=== PATIENT | male | born 1945 | race Caucasian/White ===

== ENCOUNTER → 2016-05-23 | Outpatient (CLI) | payer MEDICARE ==
[2016-05-23 07:42] LABS: Basophils # (A) 0.2 k/uL (0-0.2); Basophils % (A) 2 %; CHCM 33.6; Eosinophils # (A) 0.3 k/uL (0-0.7); Eosinophils % (A) 3 %; HCT 49.1 % (39.0-53.0); HDW 2.88; Luc % (Auto) 1; Lymphocytes # (A) 0.7 k/uL (1.0-4.8); Lymphocytes % (A) 8 %; MCH 30.3 pg (25.0-35.0); MCHC 32.7 g/dL (31.0-37.0); MCV 92.7 fL (80.0-100.0); Mean Platelet Volume 8.3; Monocytes # (A) 0.4 k/uL (0-1.0); Monocytes % (A) 5 %; Neutrophils # (A) 6.5 k/uL (1.3-7.7); Neutrophils % (A) 80 %; RDW 14.6 % (11.5-15.5); WBC 8.1 k/uL (3.8-10.6); WBC (Perox) 7.97
[2016-05-23 07:46] LABS: Appearance,Urine Clear (Clear); Bilirubin,Urine Negative (Negative); Glucose,Urine (UA) Negative (Negative); Ketones,Urine Negative (Negative); Leukocyte Esterase,Urine Moderate (Negative); Nitrite,Urine Negative (Negative); Particle Count 712; Protein,Urine Negative (Negative); Specific Gravity,Urine 1.008 (1.001-1.035); Squamous Epithelial Cell,Urine <1 /hpf (0-4); UA Billing (MACRO vs. MICRO) MICRO; Urobilinogen,Urine <2.0 mg/dL (<2.0); WBC,Urine 38 /hpf (0-5)
[2016-05-23 10:38] LABS: Calcium 8.9 mg/dL (8.4-10.2); Magnesium 2.3 mg/dL (1.6-2.3); Phosphorous 3.5 mg/dL (2.5-4.5); Potassium 3.5 mmol/L (3.5-5.1)
[2016-05-23 10:48] LABS: % Iron Saturation 20.2 % (20-50)
== END | disposition home or self-care (01) ==
LOC: LABWHC1 06:33
PROVIDERS: ATTEND Internal Medicine Nephrology
DX: N18.3 Chronic kidney disease, stage 3 (moderate) (principal); N25.81 Secondary hyperparathyroidism of renal origin; D64.9 Anemia, unspecified; E21.3 Hyperparathyroidism, unspecified; E55.9 Vitamin D deficiency, unspecified; M10.9 Gout, unspecified; R80.9 Proteinuria, unspecified
CPT/HCPCS: 36415; 80048; 81001; 82040; 82306; 82728; 83540; 83550; 83735; 83970; 84100; 84550; 85025

== ENCOUNTER → 2016-07-11 | Outpatient (CLI) | payer MEDICARE ==
[2016-07-11 08:20] LABS: Calcium 8.7 mg/dL (8.4-10.2); Potassium 4.3 mmol/L (3.5-5.1)
== END | disposition home or self-care (01) ==
LOC: LABWHC1 06:33
PROVIDERS: ATTEND Internal Medicine
DX: N18.4 Chronic kidney disease, stage 4 (severe) (principal)
CPT/HCPCS: 36415; 80048; 83735

== ENCOUNTER → 2016-09-05 | Outpatient (CLI) | payer MEDICARE ==
[2016-09-05 07:30] LABS: CH 29.8; CHCM 31.8; HCT 43.4 % (39.0-53.0); HDW 2.87; Hypochromasia Slight; MCH 30.2 pg (25.0-35.0); MCHC 32.1 g/dL (31.0-37.0); Mean Platelet Volume 7.2; RBC 4.62 m/uL (4.30-5.90); RDW 14.8 % (11.5-15.5); WBC 7.4 k/uL (3.8-10.6)
[2016-09-05 07:40] LABS: Appearance,Urine Clear (Clear); Bilirubin,Urine Negative (Negative); Glucose,Urine (UA) Negative (Negative); Ketones,Urine Negative (Negative); Leukocyte Esterase,Urine Large (Negative); Mucus,Urine Rare /hpf; Nitrite,Urine Negative (Negative); PH, Urine 6.5 (5.0-8.0); Particle Count 698; Protein,Urine Trace (Negative); RBC,Urine 1 /hpf (0-5); Specific Gravity,Urine 1.012 (1.001-1.035); UA Billing (MACRO vs. MICRO) MICRO; Urobilinogen,Urine <2.0 mg/dL (<2.0); WBC,Urine 107 /hpf (0-5)
[2016-09-05 10:22] LABS: Phosphorous 3.5 mg/dL (2.5-4.5); Potassium 4.5 mmol/L (3.5-5.1); Uric Acid 5.5 mg/dL (3.5-8.5)
[2016-09-05 10:28] LABS: Creatinine,Urine Random 101.1 mg/dL
[2016-09-05 10:31] LABS: % Iron Saturation 16.5 % (20-50)
[2016-09-06 11:29] LABS: Free Kappa Lt Chain Qnt, Serum 3.73 mg/dL (0.33 - 1.94); Kappa/Lambda Light Chain Ratio 1.73 (0.26 - 1.65)
== END | disposition home or self-care (01) ==
LOC: LABWHC1 06:32
PROVIDERS: ATTEND Internal Medicine
DX: N18.4 Chronic kidney disease, stage 4 (severe) (principal); D64.9 Anemia, unspecified; R80.9 Proteinuria, unspecified; E55.9 Vitamin D deficiency, unspecified; M10.9 Gout, unspecified
CPT/HCPCS: 36415; 80048; 81001; 82043; 82306; 82570; 82728; 83540; 83550; 83883; 83970; 84100; 84156; 84550; 85027; 86334

== ENCOUNTER → 2016-12-07 | Outpatient (CLI) | payer MEDICARE ==
[2016-12-07 10:42] LABS: Urine Creatinine 38.7 mg/dL
[2016-12-07 13:47] LABS: Potassium 4.6 mmol/L (3.5-5.1); Total Protein 6.3 g/dL (6.3-8.2)
== END | disposition home or self-care (01) ==
LOC: LABWHC1 06:35
PROVIDERS: ATTEND Internal Medicine Endocrinology, Diabetes & Metabolism
DX: E11.65 Type 2 diabetes mellitus with hyperglycemia (principal)
CPT/HCPCS: 36415; 80053; 80061; 82043; 82570; 82607; 84443

== ENCOUNTER → 2017-01-17 | Outpatient (CLI) | payer MEDICARE ==
[2017-01-17 07:53] LABS: Calcium 8.9 mg/dL (8.4-10.2); Potassium 4.5 mmol/L (3.5-5.1)
== END | disposition home or self-care (01) ==
LOC: LABWHC1 06:34
PROVIDERS: ATTEND Internal Medicine
DX: N18.3 Chronic kidney disease, stage 3 (moderate) (principal)
CPT/HCPCS: 36415; 80048; 84550

== ENCOUNTER → 2017-07-03 | Outpatient (CLI) | payer MEDICARE ==
[2017-07-03 07:37] LABS: Albumin 3.3 g/dL (3.5-5.0); Calcium 8.9 mg/dL (8.4-10.2); Potassium 4.4 mmol/L (3.5-5.1); Total Protein 5.8 g/dL (6.3-8.2)
[2017-07-03 13:59] LABS: Hemoglobin A1C 6.6 % (4.0-6.0)
== END | disposition home or self-care (01) ==
LOC: LABWHC1 06:38
PROVIDERS: ATTEND Internal Medicine Endocrinology, Diabetes & Metabolism
DX: E11.65 Type 2 diabetes mellitus with hyperglycemia (principal)
CPT/HCPCS: 36415; 80053; 80061; 82043; 82570; 83036

== ENCOUNTER → 2017-08-14 | Outpatient (CLI) | payer MEDICARE ==
[2017-08-14 07:20] LABS: Calcium 8.4 mg/dL (8.4-10.2); Phosphorus 3.6 mg/dL (2.5-4.5); Potassium 4.8 mmol/L (3.5-5.1); Total Bilirubin 0.8 mg/dL (0.2-1.3); Total Protein 5.5 g/dL (6.3-8.2)
== END | disposition home or self-care (01) ==
LOC: LABWHC1 06:40
PROVIDERS: ATTEND Internal Medicine
DX: N18.4 Chronic kidney disease, stage 4 (severe) (principal)
CPT/HCPCS: 36415; 80053; 84100

== ENCOUNTER → 2017-12-18 | Outpatient (CLI) | payer MEDICARE ==
[2017-12-18 07:24] LABS: HCT 47.1 % (39.0-53.0); HGB 14.9 gm/dL (13.0-17.5); MCH 29.5 pg (25.0-35.0); MCHC 31.7 g/dL (31.0-37.0); MCV 93.1 fL (80.0-100.0); Mean Platelet Volume 7.9; Platelet Count 160 k/uL (150-450); RBC 5.06 m/uL (4.30-5.90); RDW 13.7 % (11.5-15.5); WBC 8.6 k/uL (3.8-10.6)
[2017-12-18 07:59] LABS: Albumin 3.6 g/dL (3.5-5.0); Calcium 8.8 mg/dL (8.4-10.2); Potassium 4.7 mmol/L (3.5-5.1); Total Bilirubin 0.7 mg/dL (0.2-1.3); Total Protein 6.1 g/dL (6.3-8.2); Uric Acid 7.4 mg/dL (3.5-8.5)
[2017-12-18 08:51] LABS: Appearance,Urine Clear (Clear); Bilirubin,Urine Negative (Negative); Blood,Urine Negative (Negative); Color,Urine Light Yellow; Glucose,Urine (UA) Negative (Negative); Ketones,Urine Negative (Negative); Leukocyte Esterase,Urine Negative (Negative); Nitrite,Urine Negative (Negative); Protein,Urine Negative (Negative); Specific Gravity,Urine 1.009 (1.001-1.035); Urobilinogen,Urine <2.0 mg/dL (<2.0)
[2017-12-18 09:10] LABS: Creatinine,Urine Random 52.6 mg/dL
[2017-12-18 16:46] LABS: Iron Saturation 23.6 (15.00-50.00)
== END | disposition home or self-care (01) ==
LOC: LABWHC1 06:38
PROVIDERS: ATTEND Internal Medicine
DX: N18.3 Chronic kidney disease, stage 3 (moderate) (principal); D63.1 Anemia in chronic kidney disease; E83.39 Other disorders of phosphorus metabolism
CPT/HCPCS: 36415; 80053; 81003; 82570; 82728; 83540; 83550; 84156; 84550; 85027

== ENCOUNTER → 2018-01-29 | Outpatient (CLI) | payer MEDICARE ==
[2018-01-29 08:07] LABS: Albumin 3.5 g/dL (3.5-5.0); Calcium 8.5 mg/dL (8.4-10.2); Potassium 4.7 mmol/L (3.5-5.1); Total Bilirubin 0.7 mg/dL (0.2-1.3); Total Protein 6.2 g/dL (6.3-8.2)
[2018-01-29 12:45] LABS: Hemoglobin A1C 6.8 % (4.0-6.0)
== END | disposition home or self-care (01) ==
LOC: LABWHC1 06:37
PROVIDERS: ATTEND Internal Medicine Endocrinology, Diabetes & Metabolism
DX: E11.65 Type 2 diabetes mellitus with hyperglycemia (principal)
CPT/HCPCS: 36415; 80053; 80061; 82043; 82570; 83036

== ENCOUNTER → 2018-03-12 | Outpatient (CLI) | payer MEDICARE ==
[2018-03-12 11:25] LABS: Anion Gap 6.7 mmol/L (4.00-12.00); Calcium 8.8 mg/dL (8.7-10.3); Carbon Dioxide 32.3 mmol/L (21.6-31.8); Potassium 4.1 mmol/L (3.5-5.5)
== END | disposition home or self-care (01) ==
LOC: LABWHC1 06:34
PROVIDERS: ATTEND Internal Medicine
DX: N18.3 Chronic kidney disease, stage 3 (moderate) (principal)
CPT/HCPCS: 36415; 80048

== ENCOUNTER → 2018-06-11 | Outpatient (CLI) | payer MEDICARE ==
[2018-06-11 07:27] LABS: Appearance,Urine Clear (Clear); Bilirubin,Urine Negative (Negative); Blood,Urine Negative (Negative); Color,Urine Yellow; Glucose,Urine (UA) Negative (Negative); Ketones,Urine Negative (Negative); Leukocyte Esterase,Urine Negative (Negative); Nitrite,Urine Negative (Negative); PH, Urine 6.5 (5.0-8.0); Protein,Urine Trace (Negative); Specific Gravity,Urine 1.012 (1.001-1.035); Urobilinogen,Urine <2.0 mg/dL (<2.0)
[2018-06-11 11:33] LABS: Anion Gap 8.8 mmol/L (4.00-12.00); Calcium 8.9 mg/dL (8.7-10.3); Carbon Dioxide 30.2 mmol/L (21.6-31.8); Phosphorus 3.6 mg/dL (2.4-5.1); Potassium 4.4 mmol/L (3.5-5.5); Uric Acid 6.2 mg/dL (3.7-8.7)
[2018-06-11 11:36] LABS: Vitamin D 25 Hydroxy 31.6 ng/mL (30.0-100.0)
[2018-06-11 12:08] LABS: Parathyroid Hormone Intact 112.3 pg/mL (14.0-72.0)
[2018-06-11 14:52] LABS: Creatinine,Urine Random 93.3 mg/dL
[2018-06-11 15:20] LABS: Total Protein,Urine Random 28.2 mg/dL (0.0-13.5)
== END | disposition home or self-care (01) ==
LOC: LABWHC1 06:36
PROVIDERS: ATTEND Internal Medicine
DX: E55.9 Vitamin D deficiency, unspecified (principal); M10.9 Gout, unspecified; N18.3 Chronic kidney disease, stage 3 (moderate); D63.1 Anemia in chronic kidney disease
CPT/HCPCS: 36415; 80048; 81003; 82306; 82570; 83970; 84100; 84156; 84550

== ENCOUNTER → 2018-07-10 | Outpatient (CLI) | payer MEDICARE ==
[2018-07-10 07:40] LABS: ALT 30 U/L (21-72); AST 22 U/L (17-59); Albumin 3.6 g/dL (3.5-5.0); Albumin/Globulin Ratio 1.3; Alkaline Phosphatase 125 U/L (38-126); Anion Gap 8 mmol/L; Blood Urea Nitrogen 41 mg/dL (9-20); Carbon Dioxide 35 mmol/L (22-30); Chloride 98 mmol/L (98-107); Globulin 2.8 g/dL; Glucose 183 mg/dL (74-99); Potassium 3.8 mmol/L (3.5-5.1); Sodium 141 mmol/L (137-145); Total Bilirubin 0.9 mg/dL (0.2-1.3); Total Protein 6.4 g/dL (6.3-8.2)
== END | disposition home or self-care (01) ==
LOC: LABWHC1 06:37
PROVIDERS: ATTEND Internal Medicine Nephrology
DX: N18.4 Chronic kidney disease, stage 4 (severe) (principal)
CPT/HCPCS: 36415; 80053

== ENCOUNTER → 2018-07-17 | Outpatient (CLI) | payer MEDICARE ==
[2018-07-17 12:31] LABS: Anion Gap 13.4 mmol/L (4.00-12.00); Calcium 9.1 mg/dL (8.7-10.3); Carbon Dioxide 27.6 mmol/L (21.6-31.8)
== END ==
LOC: LABWHC1 06:33
PROVIDERS: ATTEND Internal Medicine
DX: N18.4 Chronic kidney disease, stage 4 (severe) (principal)
CPT/HCPCS: 36415; 80048

== ENCOUNTER → 2018-09-17 | Outpatient (CLI) | payer MEDICARE ==
[2018-09-17 07:22] LABS: HCT 42.9 % (39.0-53.0); HGB 13.7 gm/dL (13.0-17.5); Hypochromasia Slight; MCH 30.9 pg (25.0-35.0); MCV 96.7 fL (80.0-100.0); Platelet Count 169 k/uL (150-450); RBC 4.44 m/uL (4.30-5.90); RDW 13.7 % (11.5-15.5); WBC 8.1 k/uL (3.8-10.6)
[2018-09-17 11:25] LABS: Iron Saturation 20.07 (15.00-50.00)
[2018-09-17 11:26] LABS: Albumin/Globulin Ratio 2.5 (1.60-3.17); Anion Gap 6.7 mmol/L (4.00-12.00); Calcium 8.5 mg/dL (8.7-10.3); Carbon Dioxide 32.3 mmol/L (21.6-31.8); Globulin 1.6 g/dL (1.6-3.3); Potassium 4.1 mmol/L (3.5-5.5); Total Bilirubin 0.9 mg/dL (0.2-1.2); Total Protein 5.6 g/dL (6.2-8.2)
== END ==
LOC: LABWHC1 06:34
PROVIDERS: ATTEND Internal Medicine
DX: N18.4 Chronic kidney disease, stage 4 (severe) (principal)
CPT/HCPCS: 36415; 80053; 82728; 83540; 83550; 85027

== ENCOUNTER → 2018-10-29 | Outpatient (CLI) | payer MEDICARE ==
[2018-10-29 11:25] LABS: African American GFR (CKD) 20.8 (60.0-200.0); Albumin 3.9 g/dL (3.80-4.90); Albumin/Globulin Ratio 1.86 (1.60-3.17); Anion Gap 8.3 mmol/L (4.00-12.00); BUN/Creat Ratio 27.5 Ratio (12.00-20.00); Calcium 8.7 mg/dL (8.7-10.3); Carbon Dioxide 26.7 mmol/L (21.6-31.8); Globulin 2.1 g/dL (1.6-3.3); LDL Cholesterol,Calculated 80.4 mg/dL (0.0-131.0); Potassium 5.1 mmol/L (3.5-5.5); Total Bilirubin 0.4 mg/dL (0.3-1.2); VLDL Calculation 33.6 mg/dL (5.00-40.00)
== END | disposition home or self-care (01) ==
LOC: LABWHC1 06:40
PROVIDERS: ATTEND Internal Medicine Endocrinology, Diabetes & Metabolism
DX: E11.65 Type 2 diabetes mellitus with hyperglycemia (principal)
CPT/HCPCS: 36415; 80053; 80061; 82043; 82570; 83036; 84443

== ENCOUNTER → 2018-11-20 | Outpatient (CLI) | payer MEDICARE ==
[2018-11-20 17:52] LABS: African American GFR (CKD) 24.5 (60.0-200.0); Anion Gap 11.1 mmol/L (4.00-12.00); BUN/Creat Ratio 24.64 Ratio (12.00-20.00); Calcium 8.8 mg/dL (8.7-10.3); Carbon Dioxide 25.9 mmol/L (21.6-31.8); Potassium 4.5 mmol/L (3.5-5.5)
== END | disposition home or self-care (01) ==
LOC: LABWHC1 06:33
PROVIDERS: ATTEND Internal Medicine
DX: N18.4 Chronic kidney disease, stage 4 (severe) (principal)
CPT/HCPCS: 36415; 80048

== ENCOUNTER → 2018-12-10 | Outpatient (CLI) | payer MEDICARE ==
[2018-12-10 07:36] LABS: Appearance,Urine Clear (Clear); Bilirubin,Urine Negative (Negative); Blood,Urine Negative (Negative); Color,Urine Light Yellow; Glucose,Urine (UA) Negative (Negative); Ketones,Urine Negative (Negative); Leukocyte Esterase,Urine Negative (Negative); Nitrite,Urine Negative (Negative); PH, Urine 5.5 (5.0-8.0); Protein,Urine Negative (Negative); Specific Gravity,Urine 1.012 (1.001-1.035); Urobilinogen,Urine <2.0 mg/dL (<2.0)
[2018-12-10 12:12] LABS: African American GFR (CKD) 24.5 (60.0-200.0); Anion Gap 7.9 mmol/L (4.00-12.00); BUN/Creat Ratio 22.5 Ratio (12.00-20.00); Calcium 8.9 mg/dL (8.7-10.3); Carbon Dioxide 27.1 mmol/L (21.6-31.8); Potassium 4.7 mmol/L (3.5-5.5)
== END | disposition home or self-care (01) ==
LOC: LABWHC1 06:34
PROVIDERS: ATTEND Internal Medicine
DX: N18.4 Chronic kidney disease, stage 4 (severe) (principal)
CPT/HCPCS: 36415; 80048; 81003

== ENCOUNTER → 2019-02-05 | Outpatient (CLI) | payer MEDICARE ==
[2019-02-05 06:59] LABS: Basophils # (A) 0.1 k/uL (0-0.2); Basophils % (A) 1 %; Eosinophils # (A) 0.2 k/uL (0-0.7); Eosinophils % (A) 3 %; HGB 14.4 gm/dL (13.0-17.5); Lymphocytes # (A) 1.1 k/uL (1.0-4.8); Lymphocytes % (A) 16 %; MCH 31.1 pg (25.0-35.0); MCV 97.3 fL (80.0-100.0); Mean Platelet Volume 8.1; Monocytes # (A) 0.4 k/uL (0-1.0); Monocytes % (A) 6 %; Neutrophils # (A) 5.3 k/uL (1.3-7.7); Neutrophils % (A) 73 %; Platelet Count 154 k/uL (150-450); RBC 4.63 m/uL (4.30-5.90); RDW 14.1 % (11.5-15.5); WBC 7.3 k/uL (3.8-10.6)
[2019-02-05 07:02] LABS: Appearance,Urine Clear (Clear); Bilirubin,Urine Negative (Negative); Blood,Urine Negative (Negative); Color,Urine Yellow; Glucose,Urine (UA) Negative (Negative); Ketones,Urine Negative (Negative); Leukocyte Esterase,Urine Negative (Negative); Nitrite,Urine Negative (Negative); PH, Urine 5.5 (5.0-8.0); Protein,Urine Negative (Negative); Specific Gravity,Urine 1.011 (1.001-1.035); Urobilinogen,Urine <2.0 mg/dL (<2.0)
[2019-02-05 10:58] LABS: Iron Saturation 22.66 (15.00-50.00)
[2019-02-05 11:04] LABS: Ferritin 259.7 ng/mL (22.0-322.0); Vitamin D 25 Hydroxy 28.8 ng/mL (30.0-100.0)
[2019-02-05 12:13] LABS: African American GFR (CKD) 24.5 (60.0-200.0); Albumin 3.9 g/dL (3.80-4.90); Anion Gap 10.1 mmol/L (4.00-12.00); BUN/Creat Ratio 21.79 Ratio (12.00-20.00); Calcium 8.8 mg/dL (8.7-10.3); Carbon Dioxide 25.9 mmol/L (21.6-31.8); Potassium 3.9 mmol/L (3.5-5.5); Uric Acid 11.2 mg/dL (3.7-8.7)
[2019-02-05 12:33] LABS: Creatinine,Urine Random 83.7 mg/dL; Total Protein,Urine Random 8.1 mg/dL (0.0-13.5)
== END | disposition home or self-care (01) ==
LOC: LABWHC1 06:29
PROVIDERS: ATTEND Nurse Practitioner Adult Health
DX: M10.9 Gout, unspecified (principal); N39.0 Urinary tract infection, site not specified; N25.81 Secondary hyperparathyroidism of renal origin; E55.9 Vitamin D deficiency, unspecified; D63.1 Anemia in chronic kidney disease; N18.4 Chronic kidney disease, stage 4 (severe)
CPT/HCPCS: 36415; 80048; 81003; 82040; 82306; 82570; 82728; 83540; 83550; 83735; 83970; 84100; 84156; 84550; 85025

== ENCOUNTER → 2019-04-08 | Outpatient (CLI) | payer MEDICARE ==
[2019-04-08 07:35] LABS: Basophils # (A) 0.1 k/uL (0-0.2); Basophils % (A) 1 %; Eosinophils # (A) 0.6 k/uL (0-0.7); Eosinophils % (A) 5 %; HCT 44.9 % (39.0-53.0); HGB 14.1 gm/dL (13.0-17.5); Lymphocytes # (A) 1.4 k/uL (1.0-4.8); Lymphocytes % (A) 12 %; MCH 31.3 pg (25.0-35.0); MCHC 31.4 g/dL (31.0-37.0); MCV 99.5 fL (80.0-100.0); Mean Platelet Volume 8.3; Monocytes # (A) 0.7 k/uL (0-1.0); Monocytes % (A) 6 %; Neutrophils # (A) 9.1 k/uL (1.3-7.7); Neutrophils % (A) 76 %; Platelet Count 155 k/uL (150-450); RBC 4.52 m/uL (4.30-5.90); RDW 13.6 % (11.5-15.5); WBC 11.9 k/uL (3.8-10.6)
[2019-04-08 08:06] LABS: Appearance,Urine Clear (Clear); Bilirubin,Urine Negative (Negative); Blood,Urine Negative (Negative); Color,Urine Yellow; Glucose,Urine (UA) Negative (Negative); Ketones,Urine Negative (Negative); Leukocyte Esterase,Urine Negative (Negative); Nitrite,Urine Negative (Negative); PH, Urine 5.5 (5.0-8.0); Protein,Urine Negative (Negative); Specific Gravity,Urine 1.013 (1.001-1.035); Urobilinogen,Urine <2.0 mg/dL (<2.0)
[2019-04-08 11:50] LABS: % Iron Saturation 17.05 (15.00-50.00); African American GFR (CKD) 22.5 (60.0-200.0); Albumin 3.7 g/dL (3.80-4.90); Anion Gap 11.1 mmol/L (4.00-12.00); BUN/Creat Ratio 30.67 Ratio (12.00-20.00); Calcium 8.5 mg/dL (8.7-10.3); Carbon Dioxide 24.9 mmol/L (21.6-31.8); Magnesium 2.1 mg/dL (1.5-2.4); Non-African American GFR(CKD) 19.4 (60.0-200.0); Phosphorus 5.2 mg/dL (2.4-5.1); Potassium 4.2 mmol/L (3.5-5.5); Uric Acid 8.5 mg/dL (3.7-8.7)
[2019-04-08 11:56] LABS: Ferritin 369.5 ng/mL (22.0-322.0)
[2019-04-09 13:21] LABS: Creatinine,Urine Random 87.9 mg/dL
[2019-04-09 13:59] LABS: Total Protein,Urine Random 15.4 mg/dL (0.0-13.5)
== END | disposition home or self-care (01) ==
LOC: LABWHC1 06:39
PROVIDERS: ATTEND Nurse Practitioner Adult Health
DX: N18.4 Chronic kidney disease, stage 4 (severe) (principal); D63.1 Anemia in chronic kidney disease; E83.39 Other disorders of phosphorus metabolism; M10.9 Gout, unspecified
CPT/HCPCS: 36415; 80048; 81003; 82040; 82306; 82570; 82728; 83540; 83550; 83735; 83970; 84100; 84156; 84550; 85025

== ENCOUNTER 2019-05-02 14:12 | Observation (INO) | payer MEDICARE ==
[2019-05-02 14:24] LABS: Glucose,Whole Blood 236 mg/dL (75-99)
[2019-05-02] MEDS ORDERED: SODIUM CHLORIDE 0.9% 1,000 ML IV STA (14:25)
[2019-05-02] MEDS ORDERED: ONDANSETRON 4 MG/2 ML VIAL IVP STA (14:30)
[2019-05-02 14:41] LABS: Basophils # (A) 0.1 k/uL (0-0.2); Basophils % (A) 1 %; Eosinophils # (A) 0.3 k/uL (0-0.7); Eosinophils % (A) 3 %; HCT 46.1 % (39.0-53.0); HGB 14.8 gm/dL (13.0-17.5); Lymphocytes # (A) 1.4 k/uL (1.0-4.8); Lymphocytes % (A) 14 %; MCH 31.3 pg (25.0-35.0); MCHC 32.1 g/dL (31.0-37.0); MCV 97.4 fL (80.0-100.0); Mean Platelet Volume 8.9; Monocytes # (A) 0.6 k/uL (0-1.0); Monocytes % (A) 6 %; Neutrophils % (A) 73 %; Platelet Count 153 k/uL (150-450); RBC 4.73 m/uL (4.30-5.90); RDW 13.8 % (11.5-15.5); WBC 9.6 k/uL (3.8-10.6)
[2019-05-02 14:50] LABS: Albumin 3.7 g/dL (3.5-5.0); Calcium 8.9 mg/dL (8.4-10.2); Potassium 2.9 mmol/L (3.5-5.1); Total Protein 6.3 g/dL (6.3-8.2)
[2019-05-02 14:51] LABS: Partial Thromboplastin Time 23.7 sec (22.0-30.0); Prothrombin Time 10.3 sec (9.0-12.0)
--- NOTE | 2019-05-02 14:58 | CT ---
EXAMINATION TYPE: CT brain cspine wo con DATE OF EXAM: 05/02/2019 COMPARISON: CT neck June 07, 2010 HISTORY: Fall injury today with headache and neck pain, syncopal episode CT DLP: 1819.2 mGycm. Automated Exposure Control for Dose Reduction was Utilized. TECHNIQUE: CT scan of the head and cervical spine are performed without contrast. FINDINGS: There is no acute intracranial hemorrhage or midline shift identified. Diffuse ventricula r and sulcal prominence. Low-attenuation in the deep and periventricular white matter present bilate rally. The globes are intact and the visualized sinuses are clear. The calvarium is intact. Localizer shows partial visualization of metallic hardware from bilateral shoulder surgery. Cervical spine is visualized in its entirety from C1 through upper thoracic levels and demonstrates a nterior fusion plate running from C3 vertebra with distal screw level suspected inferior C7 level. Th ere is some ossific fusion are desired arthrodesis at this level. There is grade 1 borderline grade 2 anterolisthesis C7 on T1 with advanced disc space narrowing and some ossific fusion at this level. T here is advanced disc space narrowing T1-T2 level. There is underlying levoconvex scoliotic curvature . Spinal canal is grossly preserved. No acute fracture is evident. Axial images show multilevel uncov ertebral facet degenerative changes and spurring contributing to multilevel neural foraminal narrowin g. Visualized portion of the thyroid gland unremarkable. Visualized lung apices show no pneumothorax. IMPRESSION: 1. There is no acute fracture or dislocation evident in the cervical spine. Long segment surgical and degenerative changes noted. 2. No acute intracranial hemorrhage or midline shift is seen. Background mild to moderate diffuse cer ebral atrophy and fairly advanced chronic small vessel ischemic change.
--- NOTE | 2019-05-02 15:08 | ED ---
General Adult HPI - General Chief complaint: Syncope Stated complaint: SYNCOPE Time Seen by Provider: 05/02/19 14:12 Source: patient, family, EMS, RN notes reviewed Mode of arrival: EMS Limitations: no limitations - History of Present Illness Initial comments: This is a 73-year-old male history of multiple medical issues who presents by EMS with complaints of syncopal or so. Family heard a crash medication he fell and hit the oven door breaking it. The patient apparently didn't have any responsiveness for vitals and CPR was started patient's in place arrived he was given 2 chest compressions and did respond and wake up. Patient does not re call passing out denies any pain with head neck back abdomen. He does have nausea and vomiting that he had only in by EMS. He denies any abdominal pain. No palpitations no fevers chills sweats or other symptoms reported. No focal deficits. - Related Data Home Medications Medication Instructions Recorded Confirmed Apixaban [Eliquis] 2.5 mg PO BID 10/29/13 05/02/19 Atorvastatin Calcium [Lipitor] 40 mg PO DAILY 10/29/13 05/02/19 Omeprazole [PriLOSEC] 20 mg PO AC-BRKFST 10/29/13 05/02/19 PARoxetine [Paxil] 20 mg PO DAILY 10/29/13 05/02/19 Potassium Chloride [Klor-Con 20] 20 meq PO MOWEFR 09/21/15 05/02/19 Tamsulosin [Flomax] 0.4 mg PO DAILY 09/21/15 05/02/19 Calcitriol [Rocaltrol] 0.25 mcg PO MOWEFR 05/02/19 05/02/19 Ferrous Sulfate [Feosol] 325 mg PO DAILY 05/02/19 05/02/19 Glimepiride [Amaryl] 4 mg PO AC-BRKFST 05/02/19 05/02/19 Insulin Glargine,Hum.rec.anlog 16 units SQ HS 05/02/19 05/02/19 [Lantus Solostar] Metoprolol Tartrate [Lopressor] 25 mg PO BID 05/02/19 05/02/19 Torsemide [Demadex] 40 mg PO DAILY 05/02/19 05/02/19 amLODIPine [Norvasc] 10 mg PO DAILY 05/02/19 05/02/19 Allergies Allergy/AdvReac Type Severity Reaction Status Date / Time meperidine HCl [From Demerol] Allergy Hallucinati Verified 09/21/15 07:50 ons morphine Allergy Hallucinati Verified 09/21/15 07:50 ons Review of Systems ROS Statement: Those systems with pertinent positive or pertinent negative responses have been documented in the HPI. ROS Other: All systems not noted in ROS Statement are negative. Past Medical History Past Medical History: Coronary Artery Disease (CAD), Diabetes Mellitus, GERD/Reflux, Hyperlipidemia, Hypertension, Osteoarthritis (OA), Prostate Disorder, Renal Disease, Sleep Apnea/CPAP/BIPAP Additional Past Medical History / Comment(s): enlarged prostate, decreased kidney function, History of Any Multi-Drug Resistant Organisms: None Reported Past Surgical History: Back Surgery, Coronary Bypass/CABG, Heart Catheterization, Hernia Repair, Joint Replacement, Orthopedic Surgery Additional Past Surgical History / Comment(s): shoulder & knee surg.,carpal tunnel surg., cervical fusion. multiple back surg. Past Anesthesia/Blood Transfusion Reactions: No Reported Reaction Past Psychological History: No Psychological Hx Reported Smoking Status: Former smoker Past Alcohol Use History: None Reported Past Drug Use History: None Reported - Past Family History Father Family Medical History: Cancer Mother Family Medical History: Cancer General Exam - General Exam Comments Initial Comments: this a well-developed well-nourished awake alert oriented 3 male who still has no recall of the events that led to him falling. He currently does have a Nitin Coma Scale of 15 except for the aforementioned recall Limitations: no limitations General appearance: alert, anxious Head exam: Present: normocephalic, other (superficial laceration to the occipital parietal scalp no active bleeding no step-off or crepitation no foreign body seen. No suture repair indicated at this time) Eye exam: Present: normal appearance, PERRL, EOMI. Absent: scleral icterus, conjunctival injection, periorbital swelling ENT exam: Present: normal exam, mucous membranes moist Neck exam: Present: normal inspection. Absent: tenderness, meningismus, lymphadenopathy Respiratory exam: Present: normal lung sounds bilaterally. Absent: respiratory distress, wheezes, rales, rhonchi, stridor Cardiovascular Exam: Present: regular rate, normal rhythm, normal heart sounds. Absent: systolic murmur, diastolic murmur, rubs, gallop, clicks GI/Abdominal exam: Present: soft, normal bowel sounds. Absent: distended, tenderness, guarding, rebound, rigid, bruit, pulsatile mass Rectal exam: Present: deferred Extremities exam: Present: full ROM, normal capillary refill, other (Does have a dog bite to the volar left forearm with a dressing and place no evidence of any rashes process at this time no formed by seen this was from yesterday. 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 Absent: tenderness, pedal edema, joint swelling, calf tenderness Back exam: Present: normal inspection Neurological exam: Present: alert, oriented X3, CN II-XII intact Psychiatric exam: Present: normal affect, normal mood Skin exam: Present: warm, dry, normal color, other (the 2 superficial laceration seen to the occipital parietal scalp as noted above). Absent: rash Course Vital Signs 05/02/19 14:16 Temperature 97.4 F L Pulse Rate 92 Respiratory 19 Rate Blood Pressure 162/88 O2 Sat by Pulse 98 Oximetry - Reevaluation(s) Reevaluation #1: 05/02/19 16:13 reevaluation patient after return from imaging revealed he is awake alert oriented 3 with a Hathaway Coma Scale of 15 EKG Findings - EKG Results: EKG: interpreted by ERMD (atrial fibrillation rate was 95 QRS 108 QT since QTC 362/454 nonspecific inferior changes PVCs noted.) Medical Decision Making - Medical Decision Making patient remains awake alert oriented 3 with a Nitin Coma Scale of 15 I discussed the findings with him and his family as well as Dr. Gamboa. Also the patient does have complaints of some left leg heaviness that was brief he'll be seen by neurology as well as cardiology admission. Additionally his last tetanus shot was 2 or 3 years ago. - Lab Data Result diagrams: 05/02/19 14:26 05/02/19 14:26 Lab Results 05/02/19 05/02/19 05/02/19 Range/Units 14:20 14:26 14:26 WBC 9.6 (3.8-10.6) k/uL RBC 4.73 (4.30-5.90) m/uL Hgb 14.8 (13.0-17.5) gm/dL Hct 46.1 (39.0-53.0) % MCV 97.4 (80.0-100.0) fL MCH 31.3 (25.0-35.0) pg MCHC 32.1 (31.0-37.0) g/dL RDW 13.8 (11.5-15.5) % Plt Count 153 (150-450) k/uL Neutrophils % 73 % Lymphocytes % 14 % Monocytes % 6 % Eosinophils % 3 % Basophils % 1 % Neutrophils # 7.0 (1.3-7.7) k/uL Lymphocytes # 1.4 (1.0-4.8) k/uL Monocytes # 0.6 (0-1.0) k/uL Eosinophils # 0.3 (0-0.7) k/uL Basophils # 0.1 (0-0.2) k/uL PT (9.0-12.0) sec INR (<1.2) APTT (22.0-30.0) sec Sodium 137 (137-145) mmol/L Potassium 2.9 L (3.5-5.1) mmol/L Chloride 102 (98-107) mmol/L Carbon Dioxide 24 (22-30) mmol/L Anion Gap 11 mmol/L BUN 37 H (9-20) mg/dL Creatinine 2.34 H (0.66-1.25) mg/dL Est GFR (CKD-EPI)AfAm 30 (>60 ml/min/1.73 sqM) Est GFR (CKD-EPI)NonAf 26 (>60 ml/min/1.73 sqM) Glucose 246 H (74-99) mg/dL POC Glucose (mg/dL) 236 H (75-99) mg/dL POC Glu [employer] CHACHO Neeta Faria Calcium 8.9 (8.4-10.2) mg/dL Magnesium 2.0 (1.6-2.3) mg/dL Total Bilirubin 1.0 (0.2-1.3) mg/dL AST 37 (17-59) U/L ALT 19 (4-49) U/L Alkaline Phosphatase 125 (38-126) U/L Creatine Kinase 173 H (55-170) U/L Troponin I (0.000-0.034) ng/mL Total Protein 6.3 (6.3-8.2) g/dL Albumin 3.7 (3.5-5.0) g/dL 05/02/19 05/02/19 Range/Units 14:26 14:26 WBC (3.8-10.6) k/uL RBC (4.30-5.90) m/uL Hgb (13.0-17.5) gm/dL Hct (39.0-53.0) % MCV (80.0-100.0) fL MCH (25.0-35.0) pg MCHC (31.0-37.0) g/dL RDW (11.5-15.5) % Plt Count (150-450) k/uL Neutrophils % % Lymphocytes % % Monocytes % % Eosinophils % % Basophils % % Neutrophils # (1.3-7.7) k/uL Lymphocytes # (1.0-4.8) k/uL Monocytes # (0-1.0) k/uL Eosinophils # (0-0.7) k/uL Basophils # (0-0.2) k/uL PT 10.3 (9.0-12.0) sec INR 1.0 (<1.2) APTT 23.7 (22.0-30.0) sec Sodium (137-145) mmol/L Potassium (3.5-5.1) mmol/L Chloride (98-107) mmol/L Carbon Dioxide (22-30) mmol/L Anion Gap mmol/L BUN (9-20) mg/dL Creatinine (0.66-1.25) mg/dL Est GFR (CKD-EPI)AfAm (>60 ml/min/1.73 sqM) Est GFR (CKD-EPI)NonAf (>60 ml/min/1.73 sqM) Glucose (74-99) mg/dL POC Glucose (mg/dL) (75-99) mg/dL POC Glu Passenger [place] ID Calcium (8.4-10.2) mg/dL Magnesium (1.6-2.3) mg/dL Total Bilirubin (0.2-1.3) mg/dL AST (17-59) U/L ALT (4-49) U/L Alkaline Phosphatase (38-126) U/L Creatine Kinase (55-170) U/L Troponin I 0.063 H* (0.000-0.034) ng/mL Total Protein (6.3-8.2) g/dL Albumin (3.5-5.0) g/dL - Radiology Data Radiology results: report reviewed, image reviewed (imaging reveals no acute findings) Critical Care Time Critical Care Time: Yes Critical Care Time: 37 minutes of critical care time which includes initial presentation with history physical labs x-rays discussed with paramedics upon arrival multiple ree valuation the patient discussion with patient family members regarding findings discussion with the admitting physician admission orders and documentation the above. Disposition Clinical Impression: Syncope, PVCs (premature ventricular contractions), Dog bite of left forearm, Scalp abrasion, Hypokalemia Disposition: ADMITTED IP TO THIS [facility] Condition: Stable Referrals: Lavelle Schwartz MD [Primary Care Provider] - 1-2 days
--- NOTE | 2019-05-02 15:22 | XR ---
EXAMINATION TYPE: XR chest 2V DATE OF EXAM: 05/02/2019 COMPARISON: Chest x-ray July 08, 2013. HISTORY: Pain after fall injury. TECHNIQUE: Frontal and lateral views of the chest are obtained. FINDINGS long segment cervical fusion plate redemonstrated. Metallic hardware right shoulder partiall y imaged similar to prior. New metallic hardware left glenoid level. Sternal wires and mediastinal clips redemonstrated. Elevated right hemidiaphragm with chronic interst itial opacities bilaterally. No new focal airspace opacity, pleural effusion, or pneumothorax. Cardio megaly with atherosclerotic thoracic aorta redemonstrated. Surgical change upper lumbar spine inferio rly partially imaged. IMPRESSION: Chronic and interstitial changes and cardiomegaly without definitive new acute pulmonary process.
--- NOTE | 2019-05-02 15:23 | XR ---
EXAMINATION TYPE: XR KUB DATE OF EXAM: 05/02/2019 3:13 PM CLINICAL HISTORY: Abdominal pain and vomiting after fall. TECHNIQUE: Two supine KUB images of the abdomen are obtained. COMPARISON: None. FINDINGS: Some paucity of bowel gas with visualized gas noted in nondistended small and large bowel l oops. Gas and fecal material in nondistended rectum. Long segment surgical change L1-S1 level. Vascul ar calcification left upper quadrant in the splenic artery. [id number] narrowing both hip joint s. Elevated right hemidiaphragm. IMPRESSION: Overall nonspecific strongly favoring nonobstructive bowel gas pattern.
[2019-05-02] MEDS ORDERED: POTASSIUM CHLORIDE 20 MEQ in WATER FOR INJECTION 1 100ML.BAG IVPB STA (15:48)
[2019-05-02] MEDS ORDERED: NALOXONE 0.4 MG/ML 1 ML VIAL IV PRN (16:19)
--- NOTE | 2019-05-02 16:24 | ED ---
Medical Decision Making - Lab Data Result diagrams: 05/02/19 14:26 05/02/19 14:26 Lab Results 05/02/19 05/02/19 05/02/19 Range/Units 14:20 14:26 14:26 WBC 9.6 (3.8-10.6) k/uL RBC 4.73 (4.30-5.90) m/uL Hgb 14.8 (13.0-17.5) gm/dL Hct 46.1 (39.0-53.0) % MCV 97.4 (80.0-100.0) fL MCH 31.3 (25.0-35.0) pg MCHC 32.1 (31.0-37.0) g/dL RDW 13.8 (11.5-15.5) % Plt Count 153 (150-450) k/uL Neutrophils % 73 % Lymphocytes % 14 % Monocytes % 6 % Eosinophils % 3 % Basophils % 1 % Neutrophils # 7.0 (1.3-7.7) k/uL Lymphocytes # 1.4 (1.0-4.8) k/uL Monocytes # 0.6 (0-1.0) k/uL Eosinophils # 0.3 (0-0.7) k/uL Basophils # 0.1 (0-0.2) k/uL PT (9.0-12.0) sec INR (<1.2) APTT (22.0-30.0) sec Sodium 137 (137-145) mmol/L Potassium 2.9 L (3.5-5.1) mmol/L Chloride 102 (98-107) mmol/L Carbon Dioxide 24 (22-30) mmol/L Anion Gap 11 mmol/L BUN 37 H (9-20) mg/dL Creatinine 2.34 H (0.66-1.25) mg/dL Est GFR (CKD-EPI)AfAm 30 (>60 ml/min/1.73 sqM) Est GFR (CKD-EPI)NonAf 26 (>60 ml/min/1.73 sqM) Glucose 246 H (74-99) mg/dL POC Glucose (mg/dL) 236 H (75-99) mg/dL POC Glu [employer] Work[employer] ID Neeta Faria Calcium 8.9 (8.4-10.2) mg/dL Magnesium 2.0 (1.6-2.3) mg/dL Total Bilirubin 1.0 (0.2-1.3) mg/dL AST 37 (17-59) U/L ALT 19 (4-49) U/L Alkaline Phosphatase 125 (38-126) U/L Creatine Kinase 173 H (55-170) U/L Troponin I (0.000-0.034) ng/mL Total Protein 6.3 (6.3-8.2) g/dL Albumin 3.7 (3.5-5.0) g/dL 05/02/19 05/02/19 Range/Units 14:26 14:26 WBC (3.8-10.6) k/uL RBC (4.30-5.90) m/uL Hgb (13.0-17.5) gm/dL Hct (39.0-53.0) % MCV (80.0-100.0) fL MCH (25.0-35.0) pg MCHC (31.0-37.0) g/dL RDW (11.5-15.5) % Plt Count (150-450) k/uL Neutrophils % % Lymphocytes % % Monocytes % % Eosinophils % % Basophils % % Neutrophils # (1.3-7.7) k/uL Lymphocytes # (1.0-4.8) k/uL Monocytes # (0-1.0) k/uL Eosinophils # (0-0.7) k/uL Basophils # (0-0.2) k/uL PT 10.3 (9.0-12.0) sec INR 1.0 (<1.2) APTT 23.7 (22.0-30.0) sec Sodium (137-145) mmol/L Potassium (3.5-5.1) mmol/L Chloride (98-107) mmol/L Carbon Dioxide (22-30) mmol/L Anion Gap mmol/L BUN (9-20) mg/dL Creatinine (0.66-1.25) mg/dL Est GFR (CKD-EPI)AfAm (>60 ml/min/1.73 sqM) Est GFR (CKD-EPI)NonAf (>60 ml/min/1.73 sqM) Glucose (74-99) mg/dL POC Glucose (mg/dL) (75-99) mg/dL POC Glu [employer] Worker ID Calcium (8.4-10.2) mg/dL Magnesium (1.6-2.3) mg/dL Total Bilirubin (0.2-1.3) mg/dL AST (17-59) U/L ALT (4-49) U/L Alkaline Phosphatase (38-126) U/L Creatine Kinase (55-170) U/L Troponin I 0.063 H* (0.000-0.034) ng/mL Total Protein (6.3-8.2) g/dL Albumin (3.5-5.0) g/dL Disposition Clinical Impression: Syncope, PVCs (premature ventricular contractions), Dog bite of left forearm, Scalp abrasion, Hypokalemia, Chronic renal failure Disposition: ADMITTED IP TO THIS [facility] Condition: Stable Referrals: Lavelle Schwartz MD [Primary Care Provider] - 1-2 days
[2019-05-02 20:24] LABS: Glucose,Whole Blood 182 mg/dL (75-99)
[2019-05-02] MEDS ORDERED: POTASSIUM CHLORIDE ER 20 MEQ TAB.ER PO STA (20:58)
[2019-05-02] MEDS ORDERED: INSULIN DETEMIR (LEVEMIR) 100 UNIT/ML SYR SQ SCH (21:00)
[2019-05-02] MEDS: METOPROLOL TARTRATE 25 MG TAB PO SCH (21:52)
[2019-05-02] MEDS: APIXABAN 2.5 MG TABLET PO SCH (21:52)
[2019-05-02] MEDS: INSULIN ASPART (NovoLOG) 100 UNIT/ML VIAL SQ SCH (21:53)
[2019-05-02] MEDS: SODIUM CHLORIDE 0.9% 1,000 ML IV SCH (21:54)
--- NOTE | 2019-05-02 23:09 | P.HPIM ---
History of Present Illness H&P Date: 05/02/19 Chief Complaint: Past out History of presenting complaint: This is a pleasant 73-year-old patient of Dr. Brown. Patient's grease cup filler is Dr. EVELIA Anderson. Patient's chronic stable medical conditions include coronary artery disease with a bypass, diabetes, GERD, hyperlipidemia, hypertension, Jeniffer arthritis, obstructive sleep apnea, BPH, chronic kidney disease. Patient was making lunch in the kitchen with some soup and when he turned around , is about all he remembers. As per the family patient fell and hit his head against the one dark that broke. They had to do to this compressions and patient did respond great toe. He has some nausea vomiting with the EMS. Patient denied any palpitation or chest pain. Patient does state that cavity grossly the bathroom and he gets a bit does get dizzy. Otherwise is not dizzy. In the past he has worn a Holter monitor for 24 hours. Not otherwise. Review of systems: GEN.: None EYES: None HEENT: None NECK: None RESPIRATORY: None CARDIOVASCULAR: As above GASTROINTESTINAL: None GENITOURINARY: BPH symptoms] MUSCULOSKELETAL: Joint pains LYMPHATICS: None HEMATOLOGICAL: None PSYCHIATRY: None NEUROLOGICAL: No focal Social history: Patient stopped smoking 30 years ago. No excessive alcohol history. . Physical examination: VITAL SIGNS: 97.4, 92, 19, 145/77, 98% room air GENERAL: BMI 40.8, laying in bed comfortable. EYES: Pupils equal. Conjunctiva normal. HEENT: External appearance of nose and ears normal, oral cavity grossly normal. NECK: JVD not raised; masses not palpable. HEART: First and second heart sounds are normal; no edema. LUNGS: Respiratory rate normal; fair air entry. ABDOMEN: Soft, nontender, liver spleen not palpable, no masses palpable. PSYCH: Alert and oriented x3; mood and affect normal. NEUROLOGICAL: Cranial nerves grossly intact; no facial asymmetry, power and sensation grossly intact. LYMPHATICS: No lymph nodes palpable in the axilla and neck MUSCULOSKELETAL: Evidence of OA especially in the hands INVESTIGATIONS, reviewed in the clinical context:: White count 9.6 hemoglobin 14.8 platelets 153 potassium 2.9 BUN 37 creatinine 2.34 patient's labs from 04/08/2019 showed bun of 22 and a creatinine of 3 Troponin I 0.063 EKG tracing personally reviewed by me-atrial fibrillation S segment depression in lateral leads PVCs Chest x-ray film personally reviewed by me-shows possible chronic interstitial changes Assessment: -This is a patient with known coronary artery disease with a bypass few years ago. Sometimes does get dizzy when he stands up in the bathroom. Normally otherwise does not feel dizzy. Patient had an episode recently passed out. Apparently was unconscious state required CPR 2. Very highly possibly another episode of arrhythmia resolved. There weremanifestations of any seizure-like activity. -Coronary artery disease and history of bypass -Diabetes mellitus type 2 -GERD -Hyperlipidemia -Essential hypertension -Primary Jeniffer arthritis -BPH -Chronic kidney disease stage 4 from nephrosclerosis and diabetic nephropathy -Obstructive sleep apnea -Morbid obesity BMI 40.8 Plan: Patient is put on telemetry. Look for any arrhythmias. Cardiology was consulted. Home medications resumed. If all negative patient probably related to him and monitor. Patient does not. Neurological workup at this point. Care was discussed with the patient question were answered. Past Medical History Past Medical History: Coronary Artery Disease (CAD), Diabetes Mellitus, GERD/Reflux, Hyperlipidemia, Hypertension, Osteoarthritis (OA), Prostate Disorder, Renal Disease, Sleep Apnea/CPAP/BIPAP Additional Past Medical History / Comment(s): enlarged prostate, decreased kidney function, History of Any Multi-Drug Resistant Organisms: None Reported Past Surgical History: Back Surgery, Coronary Bypass/CABG, Heart Catheterization, Hernia Repair, Joint Replacement, Orthopedic Surgery Additional Past Surgical History / Comment(s): shoulder & knee surg.,carpal tunnel surg., cervical fusion. multiple back surg. Past Anesthesia/Blood Transfusion Reactions: No Reported Reaction Past Psychological History: No Psychological Hx Reported Smoking Status: Former smoker Past Alcohol Use History: Occasional Past Drug Use History: None Reported - Past Family History Father Family Medical History: Cancer Mother Family Medical History: Cancer Medications and Allergies Home Medications Medication Instructions Recorded Confirmed Type Apixaban [Eliquis] 2.5 mg PO BID 10/29/13 05/02/19 History Atorvastatin Calcium [Lipitor] 40 mg PO DAILY 10/29/13 05/02/19 History Omeprazole [PriLOSEC] 20 mg PO AC-BRKFST 10/29/13 05/02/19 History PARoxetine [Paxil] 20 mg PO DAILY 10/29/13 05/02/19 History Potassium Chloride [Klor-Con 20] 20 meq PO MOWEFR 09/21/15 05/02/19 History Tamsulosin [Flomax] 0.4 mg PO DAILY 09/21/15 05/02/19 History Calcitriol [Rocaltrol] 0.25 mcg PO MOWEFR 05/02/19 05/02/19 History Ferrous Sulfate [Feosol] 325 mg PO DAILY 05/02/19 05/02/19 History Glimepiride [Amaryl] 4 mg PO AC-BRKFST 05/02/19 05/02/19 History Insulin Glargine,Hum.rec.anlog 16 units SQ AC-BRKFST 05/02/19 05/02/19 History [Lantus Solostar] Lisinopril 20 mg PO DAILY 05/02/19 05/02/19 History Metoprolol Tartrate [Lopressor] 25 mg PO BID 05/02/19 05/02/19 History Torsemide [Demadex] 40 mg PO DAILY 05/02/19 05/02/19 History Allergies Allergy/AdvReac Type Severity Reaction Status Date / Time meperidine HCl [From Demerol] Allergy Hallucinati Verified 05/02/19 20:33 ons morphine Allergy Hallucinati Verified 05/02/19 20:33 ons Physical Exam Vitals: Vital Signs Temp Pulse Pulse Resp BP BP Pulse Ox 05/02/19 20:00 97.7 F 69 16 126/75 93 L 05/02/19 19:48 98.2 F 38 L 16 116/92 96 05/02/19 17:31 62 18 145/77 98 05/02/19 14:16 97.4 F L 92 19 162/88 98 Intake and Output 05/02/19 05/02/19 05/03/19 14:59 22:59 06:59 Intake Total 1400 Balance 1400 Intake: Oral 1400 Other: Weight 107.728 kg 107.728 kg Results CBC & Chem 7: 05/02/19 14:26 05/02/19 14:26 Labs: Abnormal Lab Results - Last 24 Hours (Table) 05/02/19 05/02/19 05/02/19 Range/Units 14:20 14:26 14:26 Potassium 2.9 L (3.5-5.1) mmol/L BUN 37 H (9-20) mg/dL Creatinine 2.34 H (0.66-1.25) mg/dL Glucose 246 H (74-99) mg/dL POC Glucose (mg/dL) 236 H (75-99) mg/dL Creatine Kinase 173 H (55-170) U/L Troponin I 0.063 H* (0.000-0.034) ng/mL 05/02/19 Range/Units 20:22 Potassium (3.5-5.1) mmol/L BUN (9-20) mg/dL Creatinine (0.66-1.25) mg/dL Glucose (74-99) mg/dL POC Glucose (mg/dL) 182 H (75-99) mg/dL Creatine Kinase (55-170) U/L Troponin I (0.000-0.034) ng/mL Thrombosis Risk Factor Assmnt - Choose All That Apply Any of the Below Risk Factors Present?: Yes Each Factor Represents 1 point: Obesity (BMI >25) Other Risk Factors: Yes Each Risk Factor Represents 3 Points: Age 75 years or older Other congenital or acquired thrombophilia - If yes, enter type in comment: No Thrombosis Risk Factor Assessment Total Risk Factor Score: 4 Thrombosis Risk Factor Assessment Level: Moderate Risk
[2019-05-02 23:13] LABS: Appearance,Urine Clear (Clear); Bilirubin,Urine Negative (Negative); Blood,Urine Negative (Negative); Color,Urine Yellow; Glucose,Urine (UA) 2+ (Negative); Ketones,Urine Negative (Negative); Leukocyte Esterase,Urine Negative (Negative); Nitrite,Urine Negative (Negative); Protein,Urine Trace (Negative); Specific Gravity,Urine 1.012 (1.001-1.035); Urobilinogen,Urine <2.0 mg/dL (<2.0)
[2019-05-03 05:59] LABS: Glucose,Whole Blood 116 mg/dL (75-99)
[2019-05-03] MEDS: GLIMEPIRIDE 4 MG TAB PO SCH (06:42)
[2019-05-03] MEDS: PANTOPRAZOLE 40 MG TABLET PO SCH (06:42)
[2019-05-03] MEDS: INSULIN DETEMIR (LEVEMIR) 100 UNIT/ML SYR SQ SCH (06:45)
[2019-05-03 07:00] LABS: HCT 41.7 % (39.0-53.0); HGB 13.6 gm/dL (13.0-17.5); Hypochromasia Slight; MCH 32.6 pg (25.0-35.0); MCHC 32.7 g/dL (31.0-37.0); MCV 99.7 fL (80.0-100.0); Macrocytosis Slight; Mean Platelet Volume 8.8; Platelet Count 180 k/uL (150-450); RBC 4.18 m/uL (4.30-5.90); RDW 13.8 % (11.5-15.5); WBC 10.6 k/uL (3.8-10.6)
[2019-05-03] MEDS: INSULIN ASPART (NovoLOG) 100 UNIT/ML VIAL SQ SCH ×4 (07:08→20:59)
[2019-05-03 07:11] LABS: Calcium 8.6 mg/dL (8.4-10.2); Potassium 4.4 mmol/L (3.5-5.1)
[2019-05-03] MEDS ORDERED: POTASSIUM CHLORIDE ER 20 MEQ TAB.ER PO SCH (09:00)
[2019-05-03] MEDS ORDERED: CALCITRIOL 0.25 MCG CAP PO SCH (09:00)
[2019-05-03] MEDS ORDERED: amLODIPine 10 MG TAB PO SCH (09:00)
[2019-05-03] MEDS: METOPROLOL TARTRATE 25 MG TAB PO SCH ×2 (10:51→21:02)
[2019-05-03] MEDS: TORSEMIDE 20 MG TAB PO SCH (10:51)
[2019-05-03] MEDS: TAMSULOSIN 0.4 MG CAP.ER.24H PO SCH (10:51)
[2019-05-03] MEDS: PARoxetine 20 MG TAB PO SCH (10:52)
[2019-05-03] MEDS: FERROUS SULFATE 325 MG TAB PO SCH (10:52)
[2019-05-03] MEDS: APIXABAN 2.5 MG TABLET PO SCH ×2 (10:52→21:02)
[2019-05-03] MEDS: ATORVASTATIN 40 MG TAB PO SCH (10:52)
[2019-05-03 11:47] LABS: Glucose,Whole Blood 120 mg/dL (75-99)
--- NOTE | 2019-05-03 12:06 | CONS ---
CONSULTATION Mr. Read is a 73-year-old gentleman who is seen for the cardiac evaluation. This patient has a known history of coronary artery disease with a prior history of coronary artery bypass surgery, chronic atrial fibrillation, and chronic kidney disease. The patient presented to the emergency room with a history of syncope. This patient was making a soup on the kitchen table and suddenly became unresponsive. According to the , when he fell down his eyes were , but he was not diaphoretic. He was slightly pale. On the way by EMS, the patient had nausea as well as vomiting. The patient did not complain of any chest pain or palpitations. This patient does not have any prior history of syncope. He has a chronic history of atrial fibrillation. The patient is moderately active physically. Denies any history of angina. HOME MEDICATIONS: Patient's home medications include Lipitor 40 mg daily, Prilosec, Flomax, calcitriol, Feosol, Amaryl, metoprolol, Demadex, and Norvasc 10 mg daily. REVIEW OF SYSTEMS: Otherwise unremarkable. PAST MEDICAL HISTORY: Past medical history includes diabetes, history of coronary artery disease, hypertension, renal disease, sleep apnea, back surgery, coronary artery bypass surgery, hernia repair, joint replacement orthopedic surgery. PHYSICAL EXAMINATION: Physical examination at present reveals a 73-year-old gentleman who is obesely built, does not appear to be in any acute distress. In the emergency room, patient's oxygen saturation was 98%, heart rate was 92, respiratory rate was 19, and blood pressure was 162/80 mmHg. The patient's blood pressure now is 117/63 mmHg, heart rate is 77 per minute. HEAD/ENT examination is negative. Neck is supple. There is no increase in jugular venous pressure. Both the carotid pulses are felt. There is no bruit. Chest is symmetrical. HEART: The PMI is not felt. First and second heart sounds are heard. There is a grade 2/6 ejection systolic murmur noted. Lungs are clinically clear to auscultation and percussion. Abdomen is soft. Liver and spleen are not enlarged. Bowel sounds are heard. EXTREMITIES: Peripheral pulsations are not felt. EKG is suggestive of old inferior wall myocardial infarction. Multiple PVCs as well as couplets and triplets were initially noted. Patient has an ST-segment depression suggestive of either electrolyte imbalance or anterior lateral ischemia. FINAL IMPRESSION: Syncope, exact etiology undetermined. Rule out any significant dysrhythmias. Orthostatic hypotension is considered. The patient's electrocardiogram shows diffuse ST-segment depression which could be secondary to hypokalemia. His potassium is being corrected. He still continues to have PVCs. We will recheck the EKG and cardiac enzymes. Echo and Doppler study will be obtained. There is no evidence of any significant orthostatic hypotension. We will increase the dose of oral potassium supplementation and repeat the electrolytes tomorrow morning. If patient is discharged home over the weekend, he should be discharged home on 30-day event monitor and follow with Dr. Luis Manuel Anderson as an outpatient. MMODL / IJN: [id number] /
[2019-05-03 14:58] LABS: Hemoglobin A1C 7.3 % (4.0-6.0)
[2019-05-03] MEDS: SODIUM CHLORIDE 0.9% 1,000 ML IV SCH ×2 (15:26→17:45)
[2019-05-03 16:45] LABS: Glucose,Whole Blood 100 mg/dL (75-99)
--- NOTE | 2019-05-03 17:59 | EEG ---
ELECTROENCEPHALOGRAM REPORT DATE OF PROCEDURE: 05/03/2019 ELECTROENCEPHALOGRAM (EEG) REPORT: TECHNIQUE: A routine 18-channel EEG was performed with video using the 10/20 international electrode placement system. HISTORY: Syncopal event. CURRENT MEDICATIONS: Rocaltrol, Lipitor, Eliquis, Paxil, insulin Feosol. STUDY DURATION: 26 minutes. FINDINGS: Please note that an excess of beta frequency activity was noted. This is not epileptiform in nature and may in part be due to medication effect. BACKGROUND: The background activity consisted of 8 to 9 Hz rhythmic waveforms symmetrically distributed over both posterior quadrants. ACTIVATION: Hyperventilation: Not performed. Photic stimulation: No driving seen. Sleep: Stages I and II sleep noted. ABNORMALITIES: Intermittent diffuse 5 to 7 Hz polymorphic theta range slowing was seen. Please note that one channel of this EEG was dedicated to EKG, at times it did not demonstrate a sinus rhythm. IMPRESSION: Mildly abnormal EEG. The intermittent diffuse theta range slowing mentioned above is not epileptiform in nature. These findings indicate mild diffuse cerebral dysfunction which may in part be due to medication effect. No seizures were recorded. No epileptiform activity was present. MMODL / IJN: [id number] / [facility]ITALRachel
--- NOTE | 2019-05-03 18:09 | ECHOF ---
Referral Reason:lv fxn MEASUREMENTS -------- HEIGHT: 162.6 cm WEIGHT: 104.3 kg BP: 117/63 RVIDd: 4.5 cm (< 3.3) IVSd: 1.8 cm (0.6 - 1.1) LVIDd: 4.4 cm (3.9 - 5.3) LVPWd: 1.5 cm (0.6 - 1.1) IVSs: 2.1 cm LVIDs: 3.4 cm LVPWs: 2.1 cm LAESV Index (A-L): 47.78 ml/m Ao Diam: 3.0 cm (2.0 - 3.7) AV Cusp: 0.9 cm (1.5 - 2.6) LA Diam: 6.0 cm (2.7 - 3.8) MV EXCURSION: 13.009 mm (> 18.000) MV EF SLOPE: 48 mm/s (70 - 150) EPSS: 0.5 cm AV maxP.26 mmHg AV meanP.53 mmHg RAP: 5.00 mmHg RVSP: 50.17 mmHg FINDINGS -------- Atrial fibrillation. This was a technically difficult study with suboptimal apical views. The left ventricular size is normal. There is moderate concentric left ventricular hypertrophy. O verall left ventricular systolic function is mild-moderately impaired with, an EF between 40 - 45 %. The right ventricle is severely enlarged. LA is severely dilated >40 ml/m2 The right atrium is mildly enlarged. 5.0mg of Lumason was utilized for enhancement of images Interatrial and interventricular septum intact. There is moderate to severe aortic valve sclerosis. Trace amount of aortic regurgitation. There is moderate aortic stenosis present. Peak/mean gradient across the Aortic Valve is 26.26mmHg / 15.5 3mmHg. Mild mitral annular calcification present. Moderate mitral regurgitation is present. Moderate tricuspid regurgitation present. There is moderate pulmonary hypertension. The right neetu tricular systolic pressure, as measured by Doppler, is 50.17mmHg. The pulmonic valve was not well visualized. The aortic root size is normal. IVC Not well visulized. There is no pericardial effusion. CONCLUSIONS -------- 1. Atrial fibrillation. 2. This was a technically difficult study with suboptimal apical views. 3. The left ventricular size is normal. 4. There is moderate concentric left ventricular hypertrophy. 5. Overall left ventricular systolic function is mild-moderately impaired with, an EF between 40 - 45 %. 6. The right ventricle is severely enlarged. 7. LA is severely dilated >40 ml/m2 8. The right atrium is mildly enlarged. 9. 5.0mg of Lumason was utilized for enhancement of images 10. There is moderate to severe aortic valve sclerosis. 11. Trace amount of aortic regurgitation. 12. Peak/mean gradient across the Aortic Valve is 26.26mmHg / 15.53mmHg. 13. Mild mitral annular calcification present. 14. Moderate mitral regurgitation is present. 15. Moderate tricuspid regurgitation present. 16. There is moderate pulmonary hypertension. 17. The pulmonic valve was not well visualized. 18. The aortic root size is normal. 19. IVC Not well visulized. 20. There is no pericardial effusion. UX INTERACTION DESIGNER: Josselin Ruiz RDCS
--- NOTE | 2019-05-03 18:37 | P.CNNES ---
History of Present Illness Consult date: 05/03/19 Reason for Consult: syncope Chief complaint: syncope History of Present Illness: HISTORY OF PRESENT ILLNESS: Thank you for allowing me to evaluate Mr. Buddy Read. Mr. Read is a 73 year-old man with PMhx of CAD, diabetes, a.fib, GERD, HLD, HTN, osteoarthritis, renal disease, sleep apnea, enlarged prostate, who presents with an episode of syncope. Patient states that he was on his feet when with no warning, he just dropped down. is at bedside, states that there was abnormal movements on his arms or legs. She called EMS, and when the police came and gave him 2 chest compressions, he woke up and was at his baseline. No post- ictal state. Was not altered, no tongue biting. Patient did have urinary incontinence. Patient denies having any heart palpitations, vision changes, dizziness prior to this episode. Patient has never had this type of episode before. Denies any recent fever, sickness, headache, nausea, vomiting, double/blurry vision, chest pain, SOB, diarrhea/constipation, abdominal pain. PAST MEDICAL HISTORY: CAD, diabetes, GERD, HLD, HTN, osteoarthritis, renal disease, sleep apnea, enlarged prostate PAST SURGICAL HISTORY: back surgery, CABG, hernia repair, shoulder/knee surgery, cervical fusion HOME MEDICATIONS: Apixaban, atorvastatin, omeprazole, paroxetine, tamsulosin, calcitriol, ferrous sulfate, glimepiride, insulin, metoprolol, torsemide, amlodipine ALLERGIES: Meperidine, morphine SOCIAL HISTORY: former smoker FAMILY HISTORY: Father and mother both had cancer REVIEW OF SYSTEMS: The 14 systems are reviewed and no additional points are identified compared to the review of systems documented history and physical PHYSICAL EXAMINATION: VITAL SIGNS: T 97.4 HR 74 RR 18 BP 102/68 O2 sat 96% on RA GEN.: NAD, pleasant and cooperative HEENT: NCAT, sclera without icterus NECK: Supple SKIN AND EXTREMITIES: Warm to touch, no edema NEURO: MENTAL STATUS: Patient alert and oriented to self, place, time. Able to name the current president. Speech fluent, able to name and repeat, following all commands readily. No right and left disorientation, neglect. CRANIAL NERVES II THROUGH XII: II: Pupils are equal and reactive to light symmetrically. No afferent pupillary defect. Visual hay are intact. III, IV, : No ptosis. Extraocular movements full. No nystagmus. V: Facial sensation intact from V1-3. VII. No clear facial asymmetry. VIII: Hearing intact to finger rub bilaterally. IX, X: Symmetric palate elevation. XI: Shoulder shrug intact. XII: Tongue midline without fasciculation or atrophy. MOTOR: Normal bulk/tone. No pronator drift or tremor. Strength is 5/5 throughout all 4 extremities. SENSORY: Intact to light touch in all 4 extremities. Romberg is negative. REFLEXES: 2+ throughout. Toes are downgoing. COORDINATION: Finger to nose intact. No dysmetria. GAIT: Narrow-based and stable. Some difficulty with toe/heel/tandem walk DIAGNOSTIC TESTING: LABORATORY: WBC 10.6 Hgb 13.6 platelet 180 Na 139 K 4.4 Cl 102 CO2 29 BUN 35 Cr 2.43 glucose 129 urinarlysis negative IMAGING: CT Head w/o contrast 05/02/19: no acute intracranial hemorrhage or midline shift is seen. background mild to moderate diffuse cerebral atrophy and fairly advanced chronic small vessel ischemic change. ASSESSMENT/RECOMMENDATIONS: 73 year-old man with PMhx of CAD, diabetes, a.fib, GERD, HLD, HTN, osteoarthritis, renal disease, sleep apnea, enlarged prostate, who presents with an episode of syncope. Patient had urinary incontinence but no other signs of seizure. Routine EEG obtained. This is patient's first lifetime seizure. Will not start patient on any AEDs at this time. Discussed ED and seizure precautions with patient. Patient agreed to not drive until seen by an outpatient neurologist. Patient should get an outpatient Neurologist appointment within 3-4 weeks of discharge. Past Medical History Past Medical History: Coronary Artery Disease (CAD), Diabetes Mellitus, GERD/Reflux, Hyperlipidemia, Hypertension, Osteoarthritis (OA), Prostate Disorder, Renal Disease, Sleep Apnea/CPAP/BIPAP Additional Past Medical History / Comment(s): enlarged prostate, decreased kidney function, History of Any Multi-Drug Resistant Organisms: None Reported Past Surgical History: Back Surgery, Coronary Bypass/CABG, Heart Catheterization, Hernia Repair, Joint Replacement, Orthopedic Surgery Additional Past Surgical History / Comment(s): shoulder & knee surg.,carpal tunnel surg., cervical fusion. multiple back surg. Past Anesthesia/Blood Transfusion Reactions: No Reported Reaction Past Psychological History: No Psychological Hx Reported Smoking Status: Former smoker Past Alcohol Use History: Occasional Past Drug Use History: None Reported - Past Family History Father Family Medical History: Cancer Mother Family Medical History: Cancer Medications and Allergies Home Medications Medication Instructions Recorded Confirmed Type Apixaban [Eliquis] 2.5 mg PO BID 10/29/13 05/02/19 History Atorvastatin Calcium [Lipitor] 40 mg PO DAILY 10/29/13 05/02/19 History Omeprazole [PriLOSEC] 20 mg PO -[facility] 10/29/13 05/02/19 History PARoxetine [Paxil] 20 mg PO DAILY 10/29/13 05/02/19 History Potassium Chloride [Klor-Con 20] 20 meq PO MOWEFR 09/21/15 05/02/19 History Tamsulosin [Flomax] 0.4 mg PO DAILY 09/21/15 05/02/19 History Calcitriol [Rocaltrol] 0.25 mcg PO MOWEFR 05/02/19 05/02/19 History Ferrous Sulfate [Feosol] 325 mg PO DAILY 05/02/19 05/02/19 History Glimepiride [Amaryl] 4 mg PO -[facility] 05/02/19 05/02/19 History Insulin Glargine,Hum.rec.anlog 16 units SQ -[facility] 05/02/19 05/02/19 History [Lantus Solostar] Lisinopril 20 mg PO DAILY 05/02/19 05/02/19 History Metoprolol Tartrate [Lopressor] 25 mg PO BID 05/02/19 05/02/19 History Torsemide [Demadex] 40 mg PO DAILY 05/02/19 05/02/19 History Allergies Allergy/AdvReac Type Severity Reaction Status Date / Time meperidine HCl [From Demerol] Allergy Hallucinati Verified 05/02/19 20:33 ons morphine Allergy Hallucinati Verified 05/02/19 20:33 ons Physical Examination - Vital Signs Vital Signs: Vital Signs Temp Pulse Pulse Pulse Pulse Pulse Resp 05/03/19 08:00 79 92 74 16 05/03/19 07:55 92 05/03/19 07:50 79 05/03/19 07:45 97.7 F 74 16 05/03/19 04:00 97.4 F L 74 18 05/03/19 03:33 72 16 05/02/19 23:51 72 16 05/02/19 23:15 98.9 F 72 16 05/02/19 20:00 97.7 F 69 16 05/02/19 19:48 98.2 F 38 L 16 05/02/19 17:31 62 18 05/02/19 14:16 97.4 F L 92 19 BP BP BP BP BP Pulse Ox 05/03/19 08:00 05/03/19 07:55 117/69 05/03/19 07:50 120/63 05/03/19 07:45 94/64 96 05/03/19 04:00 102/68 05/03/19 03:33 05/02/19 23:51 05/02/19 23:15 150/72 93 L 05/02/19 20:00 126/75 93 L 05/02/19 19:48 116/92 96 05/02/19 17:31 145/77 98 05/02/19 14:16 162/88 98 Intake and Output 05/02/19 05/03/19 05/03/19 22:59 06:59 14:59 Intake Total 1400 220 Output Total 100 Balance 1400 -100 220 Intake: IV 20 Invasive Line 1 20 Oral 1400 200 Output: Urine 100 Other: # Voids 2 # Bowel Movements 1 Weight 107.728 kg 104.7 kg Results - Laboratory Findings CBC and BMP: 05/03/19 06:16 05/03/19 06:16 Abnormal Lab Findings: Abnormal Labs 05/02/19 05/02/19 05/02/19 14:20 14:26 14:26 RBC Potassium 2.9 L BUN 37 H Creatinine 2.34 H Glucose 246 H POC Glucose (mg/dL) 236 H Creatine Kinase 173 H Troponin I 0.063 H* Urine Protein Urine Glucose (UA) 05/02/19 05/02/19 05/03/19 20:22 22:45 05:57 RBC Potassium BUN Creatinine Glucose POC Glucose (mg/dL) 182 H 116 H Creatine Kinase Troponin I Urine Protein Trace H Urine Glucose (UA) 2+ H 05/03/19 05/03/19 06:16 06:16 RBC 4.18 L Potassium BUN 35 H Creatinine 2.43 H Glucose 129 H POC Glucose (mg/dL) Creatine Kinase Troponin I Urine Protein Urine Glucose (UA)
[2019-05-03 20:34] LABS: Glucose,Whole Blood 162 mg/dL (75-99)
[2019-05-03] MEDS: POTASSIUM CHLORIDE ER 20 MEQ TAB.ER PO SCH (21:02)
--- NOTE | 2019-05-03 23:07 | P.CONS ---
History of Present Illness - Reason for Consult Consult date: 05/03/19 left arm dog bite wound Requesting physician: Carlos Gamboa - Chief Complaint left arm wound and passed out - History of Present Illness Patient is a 73-year-old male who has been brought into the ER at [facility] yesterday after apparently the patient did have a syncopal episode patient found to be unresponsive tried to do CPR on him brooks bsequently on arrival of the EMS patient did have chest completion and apparently the patient did work-up did not require any defibrillation patient did not remember what happened patient denies having any headache chest pain shortness of breath or any palpitation subsequently patient has been admitted to hospital for evaluation of his underlying syncope on arrival to the ER the patient has been afebrile his white count has been normal urine has been negative and he did have a chest x-ray that was negative for any consolidation patient also have a wound on his left forearm that apparently happened about 3 days ago when his dog bite him patient said he was wearing a thick sweater which took most of the bone and will try to take the sweater off some of the skin came off with it with resulting wound the patient is currently being treated with some local care patient currently denies having any pain at his left arm wound site there is no surrounding swelling redness or any foul-smelling drainage and the patient cannot any systemic antibiotic therapy. Review of Systems Positive point has been mentioned in HPI rest of the systems are negative Past Medical History Past Medical History: Coronary Artery Disease (CAD), Diabetes Mellitus, GERD/Reflux, Hyperlipidemia, Hypertension, Osteoarthritis (OA), Prostate Disorder, Renal Disease, Sleep Apnea/CPAP/BIPAP Additional Past Medical History / Comment(s): enlarged prostate, decreased kidney function, History of Any Multi-Drug Resistant Organisms: None Reported Past Surgical History: Back Surgery, Coronary Bypass/CABG, Heart Catheterization, Hernia Repair, Joint Replacement, Orthopedic Surgery Additional Past Surgical History / Comment(s): shoulder & knee surg.,carpal tunnel surg., cervical fusion. multiple back surg. Past Anesthesia/Blood Transfusion Reactions: No Reported Reaction Past Psychological History: No Psychological Hx Reported Smoking Status: Former smoker Past Alcohol Use History: Occasional Past Drug Use History: None Reported - Past Family History Father Family Medical History: Cancer Mother Family Medical History: Cancer Medications and Allergies Home Medications Medication Instructions Recorded Confirmed Type Apixaban [Eliquis] 2.5 mg PO BID 10/29/13 05/02/19 History Atorvastatin Calcium [Lipitor] 40 mg PO DAILY 10/29/13 05/02/19 History Omeprazole [PriLOSEC] 20 mg PO -[facility] 10/29/13 05/02/19 History PARoxetine [Paxil] 20 mg PO DAILY 10/29/13 05/02/19 History Potassium Chloride [Klor-Con 20] 20 meq PO MOWEFR 09/21/15 05/02/19 History Tamsulosin [Flomax] 0.4 mg PO DAILY 09/21/15 05/02/19 History Calcitriol [Rocaltrol] 0.25 mcg PO MOWEFR 05/02/19 05/02/19 History Ferrous Sulfate [Feosol] 325 mg PO DAILY 05/02/19 05/02/19 History Glimepiride [Amaryl] 4 mg PO -[facility] 05/02/19 05/02/19 History Insulin Glargine,Hum.rec.anlog 16 units SQ -[facility] 05/02/19 05/02/19 History [Lantus Solostar] Lisinopril 20 mg PO DAILY 05/02/19 05/02/19 History Metoprolol Tartrate [Lopressor] 25 mg PO BID 05/02/19 05/02/19 History Torsemide [Demadex] 40 mg PO DAILY 05/02/19 05/02/19 History Allergies Allergy/AdvReac Type Severity Reaction Status Date / Time meperidine HCl [From Demerol] Allergy Hallucinati Verified 05/02/19 20:33 ons morphine Allergy Hallucinati Verified 05/02/19 20:33 ons Physical Exam Vitals: Vital Signs Temp Pulse Pulse Pulse Pulse Pulse Resp 05/03/19 11:26 77 92 74 16 05/03/19 11:25 97.7 F 77 16 05/03/19 08:00 79 92 74 16 05/03/19 07:55 92 05/03/19 07:50 79 05/03/19 07:45 97.7 F 74 16 05/03/19 04:00 97.4 F L 74 18 05/03/19 03:33 72 16 05/02/19 23:51 72 16 05/02/19 23:15 98.9 F 72 16 05/02/19 20:00 97.7 F 69 16 05/02/19 19:48 98.2 F 38 L 16 05/02/19 17:31 62 18 BP BP BP BP BP Pulse Ox 05/03/19 11:26 05/03/19 11:25 117/63 97 05/03/19 08:00 05/03/19 07:55 117/69 05/03/19 07:50 120/63 05/03/19 07:45 94/64 96 05/03/19 04:00 102/68 05/03/19 03:33 05/02/19 23:51 05/02/19 23:15 150/72 93 L 05/02/19 20:00 126/75 93 L 05/02/19 19:48 116/92 96 05/02/19 17:31 145/77 98 Intake and Output 05/03/19 05/03/19 05/03/19 06:59 14:59 22:59 Intake Total 440 Output Total 100 Balance -100 440 Intake: IV 40 Invasive Line 1 40 Oral 400 Output: Urine 100 Other: # Voids 2 # Bowel Movements 1 Weight 104.7 kg GENERAL DESCRIPTION: Elderly male lying in bed, no distress. No tachypnea or accessory muscle of respiration use. HEENT: Shows Pallor , no scleral icterus. Oral mucous membrane is dry. NECK: Trachea central, no thyromegaly. LUNGS: Unlabored breathing. Clear to auscultation anteriorly. No wheeze or crackle. HEART: S1, S2, regular rate and rhythm. ABDOMEN: Soft, no tenderness , guarding or rigidity EXTREMITIES: Left forearm did have a wound with no slough tissue there is no surrounding swelling redness or any foul-smelling drainage. SKIN: No rash, no masses palpable. NEUROLOGICAL: The patient is awake, alert, oriented x3, mood and affect normal. Results CBC & Chem 7: 05/03/19 06:16 05/03/19 06:16 Labs: Abnormal Lab Results - Last 24 Hours (Table) 05/02/19 05/02/19 05/03/19 Range/Units 20:22 22:45 05:57 RBC (4.30-5.90) m/uL BUN (9-20) mg/dL Creatinine (0.66-1.25) mg/dL Glucose (74-99) mg/dL POC Glucose (mg/dL) 182 H 116 H (75-99) mg/dL Hemoglobin A1c (4.0-6.0) % Troponin I (0.000-0.034) ng/mL Urine Protein Trace H (Negative) Urine Glucose (UA) 2+ H (Negative) 05/03/19 05/03/19 05/03/19 Range/Units 06:16 06:16 06:16 RBC 4.18 L (4.30-5.90) m/uL BUN 35 H (9-20) mg/dL Creatinine 2.43 H (0.66-1.25) mg/dL Glucose 129 H (74-99) mg/dL POC Glucose (mg/dL) (75-99) mg/dL Hemoglobin A1c 7.3 H (4.0-6.0) % Troponin I (0.000-0.034) ng/mL Urine Protein (Negative) Urine Glucose (UA) (Negative) 05/03/19 05/03/19 Range/Units 11:45 11:58 RBC (4.30-5.90) m/uL BUN (9-20) mg/dL Creatinine (0.66-1.25) mg/dL Glucose (74-99) mg/dL POC Glucose (mg/dL) 120 H (75-99) mg/dL Hemoglobin A1c (4.0-6.0) % Troponin I 0.436 H* (0.000-0.034) ng/mL Urine Protein (Negative) Urine Glucose (UA) (Negative) Assessment and Plan Assessment: patient with left forearm wound traumatic from a dog bite wound currently looks clean with no evidence of any secondary cellulitis in this patient currently with no pain or any fever or elevated white count would recommend local wound care only patient is up-to-date on his tetanus shot as last dose to received about 3 to 4 years ago per patient (1) Dog bite of left forearm Current Visit: Yes Status: Acute Code(s): S51.852A - OPEN BITE OF LEFT FOREARM, INITIAL ENCOUNTER; W54.0XXA - BITTEN BY DOG, INITIAL ENCOUNTER SNOMED Code(s): 808950643 Plan: 1-local wound care with dry Aquacel silver dressing followed by Kerlix to secure it 2-hold on any systemic antibiotic therapy We will follow on clinical condition and cultures to further adjust medication if needed Thank you for this consultation we will follow the patient along with you
--- NOTE | 2019-05-03 23:28 | P.PN ---
Progress Note - Text Progress Note Date: 05/03/19 Chief Complaint: Past out History of presenting complaint: This is a pleasant 73-year-old patient of Dr. Brown. Patient's ear machine operator is Dr. EVELIA Anderson. Patient's chronic stable medical conditions include coronary artery disease with a bypass, diabetes, GERD, hyperlipidemia, hypertension, Jeniffer arthritis, obstructive sleep apnea, BPH, chronic kidney disease. Patient was making lunch in the kitchen with some soup and when he turned around , is about all he remembers. As per the family patient fell and hit his head against the one dark that broke. They had to do to this compressions and patient did respond great toe. He has some nausea vomiting with the EMS. Patient denied any palpitation or chest pain. Patient does state that cavity grossly the bathroom and he gets a bit does get dizzy. Otherwise is not dizzy. In the past he has worn a Holter monitor for 24 hours. Not otherwise. Patient also did dog bite to his left forearm. No local evidence of infection. Today-laying in bed. No new issues. Neurological and cardiac workup in place. Telemetry has been unremarkable. Review of systems: Was done for constitutional, cardiovascular, GI, pulmonary. relevant finding as above Active Medications Apixaban (Eliquis) 2.5 mg PO BID [facility] Last Admin: 05/03/19 21:02 Dose: 2.5 mg Documented by: Atorvastatin Calcium (Lipitor) 40 mg PO DAILY [facility] Last Admin: 05/03/19 10:52 Dose: 40 mg Documented by: Calcitriol (Rocaltrol) 0.25 mcg PO MOWEFR [facility] Last Admin: 05/03/19 10:51 Dose: 0.25 mcg Documented by: Ferrous Sulfate (Feosol) 325 mg PO DAILY [facility] Last Admin: 05/03/19 10:52 Dose: 325 mg Documented by: Glimepiride (Amaryl) 4 mg PO AC-BRKFST [facility] Last Admin: 05/03/19 06:42 Dose: 4 mg Documented by: Sodium Chloride (Saline 0.9%) 1,000 mls @ 20 mls/hr IV .Q24H [facility] Last Admin: 05/03/19 15:26 Dose: Not Given Documented by: Sodium Chloride (Saline 0.9%) 1,000 mls @ 75 mls/hr IV .[id number] [facility] Last Admin: 05/03/19 17:45 Dose: Not Given Documented by: Insulin Aspart (Novolog) 0 unit SQ ACHS [facility]; Protocol Last Admin: 05/03/19 20:59 Dose: 1 unit Documented by: Insulin Detemir (Levemir) 16 unit SQ DAILY@0700 [facility] Last Admin: 05/03/19 06:45 Dose: 16 unit Documented by: Metoprolol Tartrate (Lopressor) 25 mg PO BID [facility] Last Admin: 05/03/19 21:02 Dose: 25 mg Documented by: Naloxone HCl (Narcan) 0.2 mg IV Q2M PRN PRN Reason: Opioid Reversal Pantoprazole Sodium (Protonix) 40 mg PO AC-BRKFST [facility] Last Admin: 05/03/19 06:42 Dose: 40 mg Documented by: Paroxetine HCl (Paxil) 20 mg PO DAILY [facility] Last Admin: 05/03/19 10:52 Dose: 20 mg Documented by: Potassium Chloride (K-Dur 20) 20 meq PO BID [facility] Last Admin: 05/03/19 21:02 Dose: 20 meq Documented by: Tamsulosin HCl (Flomax) 0.4 mg PO DAILY [facility] Last Admin: 05/03/19 10:51 Dose: 0.4 mg Documented by: Torsemide (Demadex) 40 mg PO DAILY [facility] Last Admin: 05/03/19 10:51 Dose: 40 mg Documented by: Physical examination: VITAL SIGNS: 97.4, 92, 19, 145/77, 98% room air GENERAL: Laying in bed, comfortable EYES: Pupils equal. Conjunctiva normal. HEENT: External appearance of nose and ears normal, oral cavity grossly normal. NECK: JVD not raised; masses not palpable. HEART: First and second heart sounds are normal; no edema. LUNGS: Respiratory rate normal; fair air entry. ABDOMEN: Soft, nontender, liver spleen not palpable, no masses palpable. PSYCH: Alert and oriented x3; mood and affect normal. MUSCULOSKELETAL: Evidence of OA especially in the hands INVESTIGATIONS, reviewed in the clinical context:: White count 10.6 hemoglobin 13.6 bun 35 creatinine 2.43 2-D echo-concentric left medical hypertrophy, EF 40-45%, moderate mitral and tricuspid regurgitation, moderate pulmonary hypertension EEG-negative for seizure Previous testing White count 9.6 hemoglobin 14.8 platelets 153 potassium 2.9 BUN 37 creatinine 2.34 patient's labs from 04/08/2019 showed bun of 22 and a creatinine of 3 Troponin I 0.063 EKG tracing personally reviewed by me-atrial fibrillation S segment depression in lateral leads PVCs Chest x-ray film personally reviewed by me-shows possible chronic interstitial changes Assessment: -This is a patient with known coronary artery disease with a bypass few years ago. Sometimes does get dizzy when he stands up in the bathroom. Normally otherwise does not feel dizzy. Patient had an episode recently passed out. Apparently was unconscious state required CPR 2. Very highly possibly another episode of arrhythmia resolved. There were , no obvious manifestations of any seizure-like activity. Patient also significantly hypokalemic that could've precipitated arrhythmia -Hypokalemia -Coronary artery disease and history of bypass -Diabetes mellitus type 2 -GERD -Hyperlipidemia -Essential hypertension -Primary Jeniffer arthritis -BPH -Chronic kidney disease stage 4 from nephrosclerosis and diabetic nephropathy -Obstructive sleep apnea -Morbid obesity BMI 40.8 Plan: Patient workup was in place. Ambulate the patient. Remains unremarkable we will discharge him tomorrow. Seen by cardiology and neurology. Repeat potassium in the morning.
[2019-05-04] MEDS: SODIUM CHLORIDE 0.9% 1,000 ML IV SCH (05:05)
[2019-05-04 06:09] LABS: Glucose,Whole Blood 108 mg/dL (75-99)
[2019-05-04] MEDS: GLIMEPIRIDE 4 MG TAB PO SCH (06:45)
[2019-05-04] MEDS: PANTOPRAZOLE 40 MG TABLET PO SCH (06:45)
[2019-05-04] MEDS: INSULIN DETEMIR (LEVEMIR) 100 UNIT/ML SYR SQ SCH (06:46)
[2019-05-04] MEDS: INSULIN ASPART (NovoLOG) 100 UNIT/ML VIAL SQ SCH ×2 (06:49→11:37)
[2019-05-04] MEDS: POTASSIUM CHLORIDE ER 20 MEQ TAB.ER PO SCH (08:23)
[2019-05-04] MEDS: APIXABAN 2.5 MG TABLET PO SCH (08:23)
[2019-05-04] MEDS: PARoxetine 20 MG TAB PO SCH (08:23)
[2019-05-04] MEDS: FERROUS SULFATE 325 MG TAB PO SCH (08:23)
[2019-05-04] MEDS: TAMSULOSIN 0.4 MG CAP.ER.24H PO SCH (08:23)
[2019-05-04] MEDS: ATORVASTATIN 40 MG TAB PO SCH (08:23)
[2019-05-04] MEDS: METOPROLOL TARTRATE 25 MG TAB PO SCH (08:28)
[2019-05-04] MEDS: TORSEMIDE 20 MG TAB PO SCH (08:29)
[2019-05-04 08:31] LABS: Calcium 8.4 mg/dL (8.4-10.2); Potassium 4.4 mmol/L (3.5-5.1)
[2019-05-04 08:54] LABS: HGB 12.9 gm/dL (13.0-17.5); Hypochromasia Moderate; MCH 32.5 pg (25.0-35.0); MCHC 32.2 g/dL (31.0-37.0); MCV 101.2 fL (80.0-100.0); Macrocytosis Slight; Mean Platelet Volume 8.9; Platelet Count 151 k/uL (150-450); RBC 3.95 m/uL (4.30-5.90); RDW 13.8 % (11.5-15.5); WBC 9.3 k/uL (3.8-10.6)
[2019-05-04 10:18] VITALS: BP 114/61; PULSE 62; TEMP 98.6
[2019-05-04 12:17] LABS: Glucose,Whole Blood 124 mg/dL (75-99)
[2019-05-04 12:35] VITALS: RESP 16
[2019-05-04 12:47] LABS: Appearance,Urine Clear (Clear); Bilirubin,Urine Negative (Negative); Blood,Urine Negative (Negative); Color,Urine Light Yellow; Glucose,Urine (UA) Negative (Negative); Ketones,Urine Negative (Negative); Leukocyte Esterase,Urine Negative (Negative); Nitrite,Urine Negative (Negative); Protein,Urine Negative (Negative); Specific Gravity,Urine 1.008 (1.001-1.035); Urobilinogen,Urine <2.0 mg/dL (<2.0)
--- NOTE | 2019-05-04 14:04 | P.PN ---
Subjective This is a pleasant 73-year-old male past medical history significant for coronary artery disease status post bypass grafting, myocardial infarction, ischemic cardiomyopathy, chronic atrial fibrillation, dyslipidemia, hypertension and chronic kidney disease. He follows in the office with Dr. Anderson. He presented to the hospital with an episode of syncope. He is seen and examined sitting up with his at the bedside. He said no further symptoms of dizziness or syncope since arriving at the hospital. He has been up ambulating without difficulty. He denies chest pain, dizziness, shortness of breath or palpitations. Laboratory data reviewed, WBC 9.3, hemoglobin 12.9, platelets 151, sodium 138, potassium 4.4, creatinine 2.53. Blood pressure 114/61 heart rate 62 afebrile maintaining oxygen saturation on room air. GENERAL: Well-appearing, well-nourished and in no acute distress. NECK: Supple without JVD or thyromegaly. LUNGS: Breath sounds clear to auscultation bilaterally. Respiration equal and unlabored. No wheezes, rales or rhonchi. HEART: Ieeegular rate and rhythm with systolic ejection murmur at the left sternal border, no rubs or gallops. S1 and S2 heard. EXTREMITIES: Normal range of motion, no edema. No clubbing or cyanosis. Peripheral pulses intact. ASSESSMENT Syncope, no significant arrhythmias noted. Possibly related to orthostatic hypotension Troponin elevation of unclear clinical significance. No wall motion abnormalities were EKG changes to suggest ischemia. Could be related to hypotension Hypokalemia Ischemic cardiomyopathy History of myocardial infarction Chronic systolic heart failure, clinically euvolemic History of coronary artery disease status post bypass grafting Diabetes mellitus Hypertension Dyslipidemia PLAN EKG and echocardiogram compared to prior studies performed in the office, no significant changes appreciated. Increase activity and ambulation in the halls, if he continues to remain asymptomatic with no significant arrhythmia then discharge is reasonable. Apply 30 day event monitor prior to discharge. Follow-up in the office with Dr. Anderson. Nurse Practitioner note has been reviewed, I agree with a documented findings and plan of care. Patient was seen and examined. Objective - Vital Signs Vital signs: Vital Signs Temp 98.6 F 05/04/19 12:00 Pulse 62 05/04/19 12:00 Resp 16 05/04/19 12:00 BP 114/61 05/04/19 12:00 Pulse Ox 96 05/04/19 12:00 Intake & Output 05/03/19 05/04/19 05/04/19 18:59 06:59 18:59 Intake Total 860 40 600 Output Total 700 200 Balance 860 -660 400 Weight 106.7 kg Intake: IV 60 40 40 Invasive Line 1 60 40 Invasive Line 2 40 Oral 800 560 Output: Urine 700 200 Other: # Voids 2 1 1 # Bowel Movements 1 1 1 - Labs CBC & Chem 7: 05/04/19 07:46 05/04/19 07:46 Labs: Abnormal Lab Results - Last 24 Hours (Table) 05/03/19 05/03/19 05/03/19 Range/Units 06:16 16:44 17:23 RBC (4.30-5.90) m/uL Hgb (13.0-17.5) gm/dL MCV (80.0-100.0) fL BUN (9-20) mg/dL Creatinine (0.66-1.25) mg/dL Glucose (74-99) mg/dL POC Glucose (mg/dL) 100 H (75-99) mg/dL Hemoglobin A1c 7.3 H (4.0-6.0) % Troponin I 0.390 H* (0.000-0.034) ng/mL 05/03/19 05/03/19 05/04/19 Range/Units 20:33 23:39 06:08 RBC (4.30-5.90) m/uL Hgb (13.0-17.5) gm/dL MCV (80.0-100.0) fL BUN (9-20) mg/dL Creatinine (0.66-1.25) mg/dL Glucose (74-99) mg/dL POC Glucose (mg/dL) 162 H 108 H (75-99) mg/dL Hemoglobin A1c (4.0-6.0) % Troponin I 0.473 H* (0.000-0.034) ng/mL 05/04/19 05/04/19 05/04/19 Range/Units 07:46 07:46 11:33 RBC 3.95 L (4.30-5.90) m/uL Hgb 12.9 L (13.0-17.5) gm/dL MCV 101.2 H (80.0-100.0) fL BUN 39 H (9-20) mg/dL Creatinine 2.53 H (0.66-1.25) mg/dL Glucose 136 H (74-99) mg/dL POC Glucose (mg/dL) 124 H (75-99) mg/dL Hemoglobin A1c (4.0-6.0) % Troponin I (0.000-0.034) ng/mL
--- NOTE | 2019-05-04 23:32 | P.DS ---
Providers Date of admission: 05/02/19 16:31 Expected date of discharge: 05/04/19 Attending physician: Carlos Gamboa Consults: 05/02/19 16:20 Consult Physician Routine Consulting Provider: Leny Craig Consult Reason/Comments: Possible TIA, syncopal episode Do you want consulting provider notified?: Yes Consult Physician Routine Consulting Provider: Eddie Anderson Consult Reason/Comments: syncope, PVCs Do you want consulting provider notified?: Yes 05/03/19 15:54 Consult Physician ONCE Consulting Provider: Gerald Steinberg Consult Reason/Comments: left arm dog bite Do you want consulting provider notified?: Yes Primary care physician: [facility] Course: Chief Complaint: Past out Hospital course: This is a pleasant 73-year-old patient of Dr. Brown. Patient's cellular tower climber is Dr. EVELIA Anderson. Patient's chronic stable medical conditions include coronary artery disease with a bypass, diabetes, GERD, hyperlipidemia, hypertension, Jeniffer arthritis, obstructive sleep apnea, BPH, chronic kidney disease. Patient was making lunch in the kitchen with some soup and when he turned around , is about all he remembers. As per the family patient fell and hit his head against the one dark that broke. They had to do to this compressions and patient did respond great toe. He has some nausea vomiting with the EMS. Patient denied any palpitation or chest pain. Patient does state that cavity grossly the bathroom and he gets a bit does get dizzy. Otherwise is not dizzy. In the past he has worn a Holter monitor for 24 hours. Not otherwise. Patient also did dog bite to his left forearm. No local evidence of infection. treated with Aquacel silver. neurological workup including negative EEG, unremarkable 2-D echocardiogram, and negative CT head. Impression is that patient may have had an underlying arrhythmia. Short-lived. Today-laying in bed. No new issues. Neurological and cardiac workup in place. Telemetry has been unremarkable.left arm bite healing well.care was discussed with the patient.patient will coal picker event monitor from [facility] on Monday. Discussion and discharge planning more than 35 minutes Consultation: Dr. VC White from cardiology Dr. Jessika steinberg from ID Physical examination: VITAL SIGNS: 98.6, 62, 18, 11 4/61, 96% on 2 L GENERAL: sitting up, comfortable EYES: Pupils equal. Conjunctiva normal. HEENT: External appearance of nose and ears normal, oral cavity grossly normal. NECK: JVD not raised; masses not palpable. HEART: First and second heart sounds are normal; no edema. LUNGS: Respiratory rate normal; fair air entry. ABDOMEN: Soft, nontender, liver spleen not palpable, no masses palpable. PSYCH: Alert and oriented x3; mood and affect normal. MUSCULOSKELETAL: Evidence of OA especially in the hands, wound healing well on arm INVESTIGATIONS, reviewed in the clinical context:: White count 10.3 bun 39 creatinine 2.53 Previous testing White count 9.6 hemoglobin 14.8 platelets 153 potassium 2.9 BUN 37 creatinine 2.34 patient's labs from 04/08/2019 showed bun of 22 and a creatinine of 3 Troponin I 0.063 EKG tracing personally reviewed by me-atrial fibrillation S segment depression in lateral leads PVCs Chest x-ray film personally reviewed by me-shows possible chronic interstitial changes 2-D echo-concentric left medical hypertrophy, EF 40-45%, moderate mitral and tricuspid regurgitation, moderate pulmonary hypertension EEG-negative for seizure Assessment: -This is a patient with known coronary artery disease with a bypass few years ago. Sometimes does get dizzy when he stands up in the bathroom. Normally otherwise does not feel dizzy. Patient had an episode recently passed out. Apparently was unconscious state required CPR 2. Very highly possibly another episode of arrhythmia resolved. There were , no obvious manifestations of any seizure-like activity. Patient also significantly hypokalemic that could've precipitated arrhythmia -Hypokalemia -Coronary artery disease and history of bypass -Diabetes mellitus type 2 -GERD -Hyperlipidemia -Essential hypertension -Primary Jeniffer arthritis -BPH -Chronic kidney disease stage 4 from nephrosclerosis and diabetic nephropathy -Obstructive sleep apnea -Morbid obesity BMI 40.8 -Wound on left forearm from dog bite-healing well disposition: Home Patient Condition at Discharge: Stable Plan - Discharge Summary Discharge Rx Participant: No New Discharge Prescriptions: Continue PARoxetine [Paxil] 20 mg PO DAILY Omeprazole [PriLOSEC] 20 mg PO AC-BRKFST Atorvastatin Calcium [Lipitor] 40 mg PO DAILY Apixaban [Eliquis] 2.5 mg PO BID Potassium Chloride [Klor-Con 20] 20 meq PO MOWEFR Tamsulosin [Flomax] 0.4 mg PO DAILY Calcitriol [Rocaltrol] 0.25 mcg PO MOWEFR Metoprolol Tartrate [Lopressor] 25 mg PO BID Insulin Glargine,Hum.rec.anlog [Lantus Solostar] 16 units SQ AC-BRKFST Torsemide [Demadex] 40 mg PO DAILY Glimepiride [Amaryl] 4 mg PO AC-BRKFST Ferrous Sulfate [Iron (65 MG Elemental)] 325 mg PO DAILY Lisinopril 20 mg PO DAILY Discharge Medication List Apixaban [Eliquis] 2.5 mg PO BID 10/29/13 [History] Atorvastatin Calcium [Lipitor] 40 mg PO DAILY 10/29/13 [History] Omeprazole [PriLOSEC] 20 mg PO AC-BRKFST 10/29/13 [History] PARoxetine [Paxil] 20 mg PO DAILY 10/29/13 [History] Potassium Chloride [Klor-Con 20] 20 meq PO MOWEFR 09/21/15 [History] Tamsulosin [Flomax] 0.4 mg PO DAILY 09/21/15 [History] Calcitriol [Rocaltrol] 0.25 mcg PO MOWEFR 05/02/19 [History] Ferrous Sulfate [Iron (65 MG Elemental)] 325 mg PO DAILY 05/02/19 [History] Glimepiride [Amaryl] 4 mg PO AC-BRKFST 05/02/19 [History] Insulin Glargine,Hum.rec.anlog [Lantus Solostar] 16 units SQ AC-BRKFST 05/02/19 [History] Lisinopril 20 mg PO DAILY 05/02/19 [History] Metoprolol Tartrate [Lopressor] 25 mg PO BID 05/02/19 [History] Torsemide [Demadex] 40 mg PO DAILY 05/02/19 [History] Follow up Appointment(s)/Referral(s): cardiology, [Other] - 1 Week Eddie Anderson MD [STAFF PHYSICIAN] - 4 Weeks Lavelle Schwartz MD [Primary Care Provider] - 3 Days Patient Instructions/Handouts: Animal Bite (ED), Syncope (DC) Activity/Diet/Wound Care/Special Instructions: coal picker event monitor at [facility] 0n monday Discharge Disposition: HOME SELF-CARE
== END 2019-05-04 14:47 | disposition home or self-care (01) ==
LOC: EC 14:12 → 3SCARD 16:31
PROVIDERS: ADMIT Hospitalist; ATTEND Hospitalist
DX: R55 Syncope and collapse (principal); R56.9 Unspecified convulsions; E87.6 Hypokalemia; I49.3 Ventricular premature depolarization; I48.91 Unspecified atrial fibrillation; R94.01 Abnormal electroencephalogram [EEG]; R94.31 Abnormal electrocardiogram [ECG] [EKG]; I25.5 Ischemic cardiomyopathy; S01.01XA Laceration without foreign body of scalp, initial encounter; S51.852A Open bite of left forearm, initial encounter; M47.812 Spondylosis without myelopathy or radiculopathy, cervical region; G31.9 Degenerative disease of nervous system, unspecified; I67.82 Cerebral ischemia; J84.9 Interstitial pulmonary disease, unspecified; I08.3 Combined rheumatic disorders of mitral, aortic and tricuspid valves; I27.20 Pulmonary hypertension, unspecified; I25.10 Atherosclerotic heart disease of native coronary artery without angina pectoris; K21.9 Gastro-esophageal reflux disease without esophagitis; E78.5 Hyperlipidemia, unspecified; I12.9 Hypertensive chronic kidney disease with stage 1 through stage 4 chronic kidney disease, or unspecified chronic kidney disease; M19.90 Unspecified osteoarthritis, unspecified site; N40.0 Benign prostatic hyperplasia without lower urinary tract symptoms; N18.4 Chronic kidney disease, stage 4 (severe); E11.22 Type 2 diabetes mellitus with diabetic chronic kidney disease; E11.21 Type 2 diabetes mellitus with diabetic nephropathy; G47.33 Obstructive sleep apnea (adult) (pediatric); I25.2 Old myocardial infarction; E66.01 Morbid (severe) obesity due to excess calories; Z68.41 Body mass index [BMI] 40.0-44.9, adult; Z79.01 Long term (current) use of anticoagulants; Z79.899 Other long term (current) drug therapy; Z79.4 Long term (current) use of insulin; Z88.5 Allergy status to narcotic agent; Z98.890 Other specified postprocedural states; Z95.1 Presence of aortocoronary bypass graft; Z96.60 Presence of unspecified orthopedic joint implant; Z98.1 Arthrodesis status; Z87.891 Personal history of nicotine dependence; Z80.9 Family history of malignant neoplasm, unspecified; W18.39XA Other fall on same level, initial encounter; W22.8XXA Striking against or struck by other objects, initial encounter; Y92.010 Kitchen of single-family (private) house as the place of occurrence of the external cause; Y93.G3 Activity, cooking and baking; W54.0XXA Bitten by dog, initial encounter
CPT/HCPCS: 96361 ×3; 96374; 99291; 36415; 95816; 93005; 80053; 80048 ×2; 82375; 82550; 83735; 84484 ×2; 85025; 85027 ×2; 85610; 85730; 81003 ×2; 83036; 71046; 74018; 72125; 70450; G0378 ×3; C8929; J3480; J2405; Q9950; 93306

== ENCOUNTER → 2019-05-09 | Outpatient (CLI) | payer MEDICARE ==
[2019-05-09 16:12] LABS: African American GFR (CKD) 25.6 (60.0-200.0); Anion Gap 7.6 mmol/L (4.00-12.00); BUN/Creat Ratio 16.3 Ratio (12.00-20.00); Calcium 8.2 mg/dL (8.7-10.3); Carbon Dioxide 24.4 mmol/L (21.6-31.8); Non-African American GFR(CKD) 22.1 (60.0-200.0); Potassium 4.3 mmol/L (3.5-5.5)
== END | disposition home or self-care (01) ==
LOC: LABWHC1 06:33
PROVIDERS: ATTEND Nurse Practitioner Adult Health
DX: N18.4 Chronic kidney disease, stage 4 (severe) (principal)
CPT/HCPCS: 36415; 80048

== ENCOUNTER → 2019-06-12 | Outpatient (CLI) | payer MEDICARE ==
[2019-06-12 12:09] LABS: Chol/HDL Ratio 3.94
[2019-06-12 14:48] LABS: Hemoglobin A1C 7.5 % (4.0-6.0)
== END | disposition home or self-care (01) ==
LOC: LABWHC1 06:32
PROVIDERS: ATTEND Internal Medicine Endocrinology, Diabetes & Metabolism
DX: E11.65 Type 2 diabetes mellitus with hyperglycemia (principal)
CPT/HCPCS: 36415; 80061; 83036; 84443

== ENCOUNTER → 2019-06-17 | Outpatient (CLI) | payer MEDICARE ==
[2019-06-17 07:04] LABS: HCT 42.9 % (39.0-53.0); HGB 13.1 gm/dL (13.0-17.5); Hypochromasia Moderate; MCH 30.5 pg (25.0-35.0); MCHC 30.6 g/dL (31.0-37.0); MCV 99.9 fL (80.0-100.0); Macrocytosis Slight; Mean Platelet Volume 8.7; Platelet Count 150 k/uL (150-450); RBC 4.29 m/uL (4.30-5.90); RDW 14.3 % (11.5-15.5); WBC 8.8 k/uL (3.8-10.6)
[2019-06-17 07:15] LABS: Appearance,Urine Clear (Clear); Bilirubin,Urine Negative (Negative); Blood,Urine Negative (Negative); Color,Urine Yellow; Glucose,Urine (UA) Negative (Negative); Ketones,Urine Negative (Negative); Leukocyte Esterase,Urine Negative (Negative); Nitrite,Urine Negative (Negative); Protein,Urine Negative (Negative); Specific Gravity,Urine 1.009 (1.001-1.035); Urobilinogen,Urine <2.0 mg/dL (<2.0)
[2019-06-17 11:57] LABS: % Iron Saturation 22.75 (15.00-50.00); African American GFR (CKD) 13.7 (60.0-200.0); Albumin 3.8 g/dL (3.80-4.90); Albumin/Globulin Ratio 2.38 (1.60-3.17); Anion Gap 8.2 mmol/L (4.00-12.00); BUN/Creat Ratio 20.44 Ratio (12.00-20.00); Calcium 8.5 mg/dL (8.7-10.3); Carbon Dioxide 23.8 mmol/L (21.6-31.8); Ferritin 349.8 ng/mL (22.0-322.0); Globulin 1.6 g/dL (1.6-3.3); Non-African American GFR(CKD) 11.8 (60.0-200.0); Phosphorus 5.5 mg/dL (2.4-5.1); Total Bilirubin 0.5 mg/dL (0.3-1.2); Total Protein 5.4 g/dL (6.2-8.2); Uric Acid 6.1 mg/dL (3.7-8.7)
[2019-06-17 12:47] LABS: Microalbumin Creatinine Ratio <30 mg/g Creat (0-30); Urine Creatinine 87.9 mg/dL
== END | disposition home or self-care (01) ==
LOC: LABWHC1 06:39
PROVIDERS: ATTEND Internal Medicine
DX: E55.9 Vitamin D deficiency, unspecified (principal); M10.9 Gout, unspecified; E83.39 Other disorders of phosphorus metabolism; D63.1 Anemia in chronic kidney disease; N18.4 Chronic kidney disease, stage 4 (severe)
CPT/HCPCS: 36415; 80053; 81003; 82043; 82306; 82570; 82728; 83540; 83550; 83735; 83970; 84100; 84550; 85027

== ENCOUNTER → 2019-07-01 | Outpatient (CLI) | payer MEDICARE ==
[2019-07-01 11:45] LABS: African American GFR (CKD) 14.9 (60.0-200.0); Anion Gap 6.9 mmol/L (4.00-12.00); BUN/Creat Ratio 21.67 Ratio (12.00-20.00); Calcium 8.7 mg/dL (8.7-10.3); Carbon Dioxide 22.1 mmol/L (21.6-31.8); Non-African American GFR(CKD) 12.8 (60.0-200.0); Potassium 5.2 mmol/L (3.5-5.5)
== END | disposition home or self-care (01) ==
LOC: LABWHC1 06:32
PROVIDERS: ATTEND Internal Medicine
DX: N18.4 Chronic kidney disease, stage 4 (severe) (principal)
CPT/HCPCS: 36415; 80048

== ENCOUNTER → 2019-07-24 | Outpatient (CLI) | payer MEDICARE ==
[2019-07-24 07:41] LABS: Appearance,Urine Clear (Clear); Bilirubin,Urine Negative (Negative); Blood,Urine Negative (Negative); Color,Urine Light Yellow; Glucose,Urine (UA) Negative (Negative); Ketones,Urine Negative (Negative); Leukocyte Esterase,Urine Negative (Negative); Nitrite,Urine Negative (Negative); Protein,Urine Negative (Negative); Specific Gravity,Urine 1.007 (1.001-1.035); Urobilinogen,Urine <2.0 mg/dL (<2.0)
[2019-07-24 07:45] LABS: Basophils # (A) 0.1 k/uL (0-0.2); Basophils % (A) 1 %; Eosinophils # (A) 0.4 k/uL (0-0.7); Eosinophils % (A) 4 %; HGB 13.2 gm/dL (13.0-17.5); Hypochromasia Moderate; Lymphocytes # (A) 1.2 k/uL (1.0-4.8); Lymphocytes % (A) 14 %; MCH 31.3 pg (25.0-35.0); MCHC 31.3 g/dL (31.0-37.0); MCV 99.9 fL (80.0-100.0); Macrocytosis Slight; Mean Platelet Volume 8.1; Monocytes # (A) 0.7 k/uL (0-1.0); Monocytes % (A) 8 %; Neutrophils # (A) 6.3 k/uL (1.3-7.7); Neutrophils % (A) 72 %; Platelet Count 182 k/uL (150-450); RBC 4.21 m/uL (4.30-5.90); RDW 14.7 % (11.5-15.5); WBC 8.7 k/uL (3.8-10.6)
[2019-07-24 12:04] LABS: % Iron Saturation 16.89 (15.00-50.00); African American GFR (CKD) 36.5 (60.0-200.0); Albumin 3.8 g/dL (3.80-4.90); Albumin/Globulin Ratio 2.11 (1.60-3.17); Anion Gap 8.6 mmol/L (4.00-12.00); BUN/Creat Ratio 12.5 Ratio (12.00-20.00); Calcium 8.3 mg/dL (8.7-10.3); Carbon Dioxide 32.4 mmol/L (21.6-31.8); Globulin 1.8 g/dL (1.6-3.3); Magnesium 1.8 mg/dL (1.5-2.4); Non-African American GFR(CKD) 31.5 (60.0-200.0); Phosphorus 2.7 mg/dL (2.4-5.1); Potassium 3.3 mmol/L (3.5-5.5); Total Bilirubin 0.9 mg/dL (0.3-1.2); Total Protein 5.6 g/dL (6.2-8.2); Uric Acid 5.5 mg/dL (3.7-8.7)
[2019-07-24 12:13] LABS: Ferritin 325.1 ng/mL (22.0-322.0)
== END | disposition home or self-care (01) ==
LOC: LABWHC1 06:38
PROVIDERS: ATTEND Internal Medicine
DX: E55.9 Vitamin D deficiency, unspecified (principal); N18.4 Chronic kidney disease, stage 4 (severe); D64.9 Anemia, unspecified; M10.9 Gout, unspecified
CPT/HCPCS: 36415; 80053; 81003; 82306; 82728; 83540; 83550; 83735; 83970; 84100; 84550; 85025

== ENCOUNTER → 2019-10-02 | Outpatient (CLI) | payer MEDICARE ==
[2019-10-02 09:31] LABS: Basophils # (A) 0.1 k/uL (0-0.2); Basophils % (A) 1 %; Eosinophils # (A) 0.4 k/uL (0-0.7); Eosinophils % (A) 4 %; HCT 46.1 % (39.0-53.0); HGB 13.8 gm/dL (13.0-17.5); Hypochromasia Moderate; Lymphocytes # (A) 1.1 k/uL (1.0-4.8); Lymphocytes % (A) 11 %; MCH 28.8 pg (25.0-35.0); MCHC 29.8 g/dL (31.0-37.0); MCV 96.6 fL (80.0-100.0); Mean Platelet Volume 8.4; Monocytes # (A) 0.6 k/uL (0-1.0); Monocytes % (A) 6 %; Neutrophils # (A) 7.8 k/uL (1.3-7.7); Neutrophils % (A) 77 %; Platelet Count 210 k/uL (150-450); RBC 4.78 m/uL (4.30-5.90); RDW 14.7 % (11.5-15.5)
[2019-10-02 09:32] LABS: Appearance,Urine Clear (Clear); Bilirubin,Urine Negative (Negative); Blood,Urine Negative (Negative); Color,Urine Light Yellow; Glucose,Urine (UA) Negative (Negative); Ketones,Urine Negative (Negative); Leukocyte Esterase,Urine Negative (Negative); Nitrite,Urine Negative (Negative); PH, Urine 6.5 (5.0-8.0); Protein,Urine Negative (Negative); Specific Gravity,Urine 1.009 (1.001-1.035); Urobilinogen,Urine <2.0 mg/dL (<2.0)
[2019-10-02 09:53] LABS: Protein/Creatinine Ratio,Urine 0.344
[2019-10-02 15:33] LABS: Ferritin 247.7 ng/mL (22.0-322.0)
[2019-10-02 15:45] LABS: % Iron Saturation 13.18 (15.00-50.00); African American GFR (CKD) 34.4 (60.0-200.0); Albumin 3.8 g/dL (3.80-4.90); Anion Gap 15.4 mmol/L (4.00-12.00); BUN/Creat Ratio 12.86 Ratio (12.00-20.00); Calcium 8.7 mg/dL (8.7-10.3); Carbon Dioxide 30.6 mmol/L (21.6-31.8); Magnesium 2.1 mg/dL (1.5-2.4); Non-African American GFR(CKD) 29.7 (60.0-200.0); Phosphorus 3.8 mg/dL (2.4-5.1); Potassium 4.6 mmol/L (3.5-5.5); Uric Acid 5.1 mg/dL (3.7-8.7)
== END | disposition home or self-care (01) ==
LOC: LABWHC1 08:12
PROVIDERS: ATTEND Nurse Practitioner Adult Health
DX: N18.4 Chronic kidney disease, stage 4 (severe) (principal); D63.1 Anemia in chronic kidney disease; N39.0 Urinary tract infection, site not specified; E21.3 Hyperparathyroidism, unspecified; E55.9 Vitamin D deficiency, unspecified; M10.9 Gout, unspecified
CPT/HCPCS: 36415; 80048; 81003; 82040; 82306; 82570; 82728; 83540; 83550; 83735; 83970; 84100; 84156; 84550; 85025

== ENCOUNTER → 2019-10-10 | Outpatient (CLI) | payer MEDICARE ==
[2019-10-10 19:34] LABS: African American GFR (CKD) 38.8 (60.0-200.0); Albumin 3.9 g/dL (3.80-4.90); Albumin/Globulin Ratio 2.17 (1.60-3.17); Anion Gap 9.1 mmol/L (4.00-12.00); BUN/Creat Ratio 11.05 Ratio (12.00-20.00); Calcium 8.8 mg/dL (8.7-10.3); Carbon Dioxide 30.9 mmol/L (21.6-31.8); Chol/HDL Ratio 3.49; Globulin 1.8 g/dL (1.6-3.3); LDL Cholesterol,Calculated 82.6 mg/dL (0.0-131.0); Non-African American GFR(CKD) 33.5 (60.0-200.0); Potassium 3.8 mmol/L (3.5-5.5); Total Protein 5.7 g/dL (6.2-8.2); VLDL Calculation 19.4 mg/dL (5.00-40.00)
[2019-10-10 21:17] LABS: Hemoglobin A1C 7.5 % (4.0-6.0)
== END | disposition home or self-care (01) ==
LOC: LABWHC1 08:02
PROVIDERS: ATTEND Internal Medicine Endocrinology, Diabetes & Metabolism
DX: E11.65 Type 2 diabetes mellitus with hyperglycemia (principal)
CPT/HCPCS: 36415; 80053; 80061; 82043; 82570; 83036; 84443

== ENCOUNTER → 2019-12-03 | Outpatient (CLI) | payer MEDICARE ==
[2019-12-03 09:40] LABS: Basophils # (A) 0.1 k/uL (0-0.2); Basophils % (A) 1 %; Eosinophils # (A) 0.3 k/uL (0-0.7); Eosinophils % (A) 3 %; HCT 44.9 % (39.0-53.0); HGB 14.2 gm/dL (13.0-17.5); Hypochromasia Moderate; Lymphocytes # (A) 1.1 k/uL (1.0-4.8); Lymphocytes % (A) 12 %; MCH 29.7 pg (25.0-35.0); MCHC 31.6 g/dL (31.0-37.0); MCV 93.9 fL (80.0-100.0); Mean Platelet Volume 8.1; Monocytes # (A) 0.5 k/uL (0-1.0); Monocytes % (A) 5 %; Neutrophils # (A) 7.4 k/uL (1.3-7.7); Neutrophils % (A) 78 %; Platelet Count 193 k/uL (150-450); RBC 4.78 m/uL (4.30-5.90); RDW 15.5 % (11.5-15.5); WBC 9.4 k/uL (3.8-10.6)
[2019-12-03 09:57] LABS: Appearance,Urine Clear (Clear); Bilirubin,Urine Negative (Negative); Blood,Urine Negative (Negative); Color,Urine Yellow; Glucose,Urine (UA) Negative (Negative); Ketones,Urine Negative (Negative); Leukocyte Esterase,Urine Negative (Negative); Nitrite,Urine Negative (Negative); Protein,Urine Negative (Negative); Specific Gravity,Urine 1.012 (1.001-1.035); Urobilinogen,Urine <2.0 mg/dL (<2.0)
[2019-12-03 10:40] LABS: Protein/Creatinine Ratio,Urine 0.169
[2019-12-03 16:50] LABS: Ferritin 291.7 ng/mL (22.0-322.0)
[2019-12-03 16:53] LABS: % Iron Saturation 15.59 (15.00-50.00); African American GFR (CKD) 29.3 (60.0-200.0); Albumin 3.9 g/dL (3.80-4.90); Anion Gap 9.3 mmol/L (4.00-12.00); BUN/Creat Ratio 19.17 Ratio (12.00-20.00); Calcium 9.1 mg/dL (8.7-10.3); Carbon Dioxide 31.7 mmol/L (21.6-31.8); Magnesium 2.3 mg/dL (1.5-2.4); Non-African American GFR(CKD) 25.3 (60.0-200.0); Phosphorus 3.6 mg/dL (2.4-5.1); Uric Acid 6.3 mg/dL (3.7-8.7)
== END | disposition home or self-care (01) ==
LOC: LABWHC1 08:16
PROVIDERS: ATTEND Nurse Practitioner Adult Health
DX: N25.81 Secondary hyperparathyroidism of renal origin (principal); M10.9 Gout, unspecified; N18.9 Chronic kidney disease, unspecified; D63.1 Anemia in chronic kidney disease
CPT/HCPCS: 36415; 80048; 81003; 82040; 82306; 82570; 82728; 83540; 83550; 83735; 83970; 84100; 84156; 84550; 85025

== ENCOUNTER → 2020-01-27 | Outpatient (CLI) | payer MEDICARE ==
[2020-01-27 07:25] LABS: Anisocytosis Slight; Basophils # (A) 0.1 k/uL (0-0.2); Basophils % (A) 1 %; Eosinophils # (A) 0.4 k/uL (0-0.7); Eosinophils % (A) 4 %; HCT 44.9 % (39.0-53.0); Hypochromasia Slight; Lymphocytes # (A) 1.2 k/uL (1.0-4.8); Lymphocytes % (A) 14 %; MCH 29.3 pg (25.0-35.0); MCHC 31.3 g/dL (31.0-37.0); MCV 93.6 fL (80.0-100.0); Mean Platelet Volume 8.8; Monocytes # (A) 0.4 k/uL (0-1.0); Monocytes % (A) 5 %; Neutrophils # (A) 6.3 k/uL (1.3-7.7); Neutrophils % (A) 73 %; Platelet Count 162 k/uL (150-450); WBC 8.6 k/uL (3.8-10.6)
[2020-01-27 07:50] LABS: Appearance,Urine Clear (Clear); Bilirubin,Urine Negative (Negative); Blood,Urine Negative (Negative); Color,Urine Light Yellow; Glucose,Urine (UA) Negative (Negative); Ketones,Urine Negative (Negative); Leukocyte Esterase,Urine Negative (Negative); Nitrite,Urine Negative (Negative); Protein,Urine Negative (Negative); Specific Gravity,Urine 1.011 (1.001-1.035); Urobilinogen,Urine <2.0 mg/dL (<2.0)
[2020-01-27 10:18] LABS: Ferritin 247.2 ng/mL (22.0-322.0)
[2020-01-27 10:37] LABS: % Iron Saturation 23.61 (15.00-50.00); African American GFR (CKD) 29.3 (60.0-200.0); Albumin 3.9 g/dL (3.80-4.90); Anion Gap 8.8 mmol/L (4.00-12.00); BUN/Creat Ratio 19.17 Ratio (12.00-20.00); Calcium 8.7 mg/dL (8.7-10.3); Carbon Dioxide 31.2 mmol/L (21.6-31.8); Non-African American GFR(CKD) 25.3 (60.0-200.0); Phosphorus 4.2 mg/dL (2.4-5.1); Potassium 3.9 mmol/L (3.5-5.5); Uric Acid 6.5 mg/dL (3.7-8.7)
[2020-01-27 11:16] LABS: Protein/Creatinine Ratio,Urine 0.167
== END | disposition home or self-care (01) ==
LOC: LABWHC1 07:03
PROVIDERS: ATTEND Nurse Practitioner Adult Health
DX: N18.4 Chronic kidney disease, stage 4 (severe) (principal); E55.9 Vitamin D deficiency, unspecified; D63.1 Anemia in chronic kidney disease; N25.81 Secondary hyperparathyroidism of renal origin; M10.9 Gout, unspecified; R80.9 Proteinuria, unspecified
CPT/HCPCS: 36415; 80048; 81003; 82040; 82306; 82570; 82728; 83540; 83550; 83735; 83970; 84100; 84156; 84550; 85025

== ENCOUNTER → 2020-04-20 | Outpatient (CLI) | payer MEDICARE ==
[2020-04-20 07:41] LABS: Basophils # (A) 0.1 k/uL (0-0.2); Basophils % (A) 1 %; Eosinophils # (A) 0.4 k/uL (0-0.7); Eosinophils % (A) 4 %; HCT 45.7 % (39.0-53.0); Lymphocytes # (A) 1.2 k/uL (1.0-4.8); Lymphocytes % (A) 13 %; MCH 31.1 pg (25.0-35.0); MCHC 32.7 g/dL (31.0-37.0); Mean Platelet Volume 7.9; Monocytes # (A) 0.5 k/uL (0-1.0); Monocytes % (A) 5 %; Neutrophils # (A) 7.4 k/uL (1.3-7.7); Neutrophils % (A) 76 %; Platelet Count 154 k/uL (150-450); RBC 4.81 m/uL (4.30-5.90); RDW 15.2 % (11.5-15.5); WBC 9.7 k/uL (3.8-10.6)
[2020-04-20 07:48] LABS: Appearance,Urine Clear (Clear); Bilirubin,Urine Negative (Negative); Blood,Urine Negative (Negative); Color,Urine Yellow; Glucose,Urine (UA) 3+ (Negative); Ketones,Urine Negative (Negative); Leukocyte Esterase,Urine Negative (Negative); Nitrite,Urine Negative (Negative); Protein,Urine Negative (Negative); Specific Gravity,Urine 1.012 (1.001-1.035); Urobilinogen,Urine <2.0 mg/dL (<2.0)
[2020-04-20 09:52] LABS: Creatinine,Urine Random 97.8 mg/dL; Protein/Creatinine Ratio,Urine 0.153
[2020-04-20 11:36] LABS: % Iron Saturation 15.95 (15.00-50.00); African American GFR (CKD) 32.5 (60.0-200.0); Albumin 3.9 g/dL (3.80-4.90); Anion Gap 8.1 mmol/L (4.00-12.00); BUN/Creat Ratio 15.45 Ratio (12.00-20.00); Calcium 8.7 mg/dL (8.7-10.3); Carbon Dioxide 31.9 mmol/L (21.6-31.8); Non-African American GFR(CKD) 28.1 (60.0-200.0); Potassium 3.8 mmol/L (3.5-5.5); Uric Acid 5.7 mg/dL (3.7-8.7)
== END | disposition home or self-care (01) ==
LOC: LABWHC1 07:18
PROVIDERS: ATTEND Nurse Practitioner Adult Health
DX: N18.4 Chronic kidney disease, stage 4 (severe) (principal); E55.9 Vitamin D deficiency, unspecified; D63.1 Anemia in chronic kidney disease; R80.9 Proteinuria, unspecified; M10.9 Gout, unspecified
CPT/HCPCS: 36415; 80048; 81003; 82040; 82306; 82570; 82728; 83540; 83550; 83735; 83970; 84100; 84156; 84550; 85025

== ENCOUNTER → 2020-05-11 | Outpatient (CLI) | payer MEDICARE ==
[2020-05-11 10:31] LABS: African American GFR (CKD) 34.4 (60.0-200.0); Albumin/Globulin Ratio 2.35 (1.60-3.17); Anion Gap 5.4 mmol/L (4.00-12.00); BUN/Creat Ratio 16.19 Ratio (12.00-20.00); Calcium 8.7 mg/dL (8.7-10.3); Carbon Dioxide 34.6 mmol/L (21.6-31.8); Chol/HDL Ratio 4.11; Globulin 1.7 g/dL (1.6-3.3); LDL Cholesterol,Calculated 92.4 mg/dL (0.0-131.0); Non-African American GFR(CKD) 29.7 (60.0-200.0); Potassium 4.2 mmol/L (3.5-5.5); Total Bilirubin 0.8 mg/dL (0.2-1.2); Total Protein 5.7 g/dL (6.2-8.2); VLDL Calculation 22.6 mg/dL (5.00-40.00)
== END | disposition home or self-care (01) ==
LOC: LABWHC1 07:03
PROVIDERS: ATTEND Internal Medicine Endocrinology, Diabetes & Metabolism
DX: E11.65 Type 2 diabetes mellitus with hyperglycemia (principal)
CPT/HCPCS: 36415; 80053; 80061; 83036; 84443

== ENCOUNTER → 2020-08-31 | Outpatient (CLI) | payer MEDICARE ==
[2020-08-31 08:17] LABS: Appearance,Urine Clear (Clear); Bilirubin,Urine Negative (Negative); Blood,Urine Negative (Negative); Color,Urine Yellow; Glucose,Urine (UA) Negative (Negative); Ketones,Urine Negative (Negative); Leukocyte Esterase,Urine Negative (Negative); Nitrite,Urine Negative (Negative); PH, Urine 5.5 (5.0-8.0); Protein,Urine Trace (Negative); Urobilinogen,Urine <2.0 mg/dL (<2.0)
[2020-08-31 08:22] LABS: Creatinine,Urine Random 114.9 mg/dL; Protein/Creatinine Ratio,Urine 0.157
[2020-08-31 10:30] LABS: Basophils # (A) 0.06 X 10*3/uL (0.00-0.10); Basophils % (A) 0.8 %; Eosinophils # (A) 0.33 X 10*3/uL (0.04-0.35); Eosinophils % (A) 4.2 %; HCT 44.8 % (39.6-50.0); HGB 13.9 g/dL (13.0-17.0); Lymphocytes # (A) 1.01 X 10*3/uL (0.90-5.00); Lymphocytes % (A) 12.9 %; MCH 30.7 pg (27.0-32.0); MCV 98.9 fL (80.0-97.0); Mean Platelet Volume 11.2 fL (9.5-12.2); Monocytes # (A) 0.71 X 10*3/uL (0.20-1.00); Monocytes % (A) 9.1 %; Neutrophils # (A) 5.69 X 10*3/uL (1.80-7.70); Neutrophils % (A) 72.5 %; Platelet Count 159 X 10*3/uL (140-440); RBC 4.53 X 10*6/uL (4.40-5.60); RDW 14.9 % (11.5-14.5); WBC 7.84 X 10*3/uL (4.50-10.00)
[2020-08-31 10:56] LABS: % Iron Saturation 16.3 (15.00-50.00); African American GFR (CKD) 26.4 (60.0-200.0); Albumin 3.8 g/dL (3.80-4.90); Anion Gap 8.4 mmol/L (4.00-12.00); BUN/Creat Ratio 16.15 Ratio (12.00-20.00); Calcium 8.6 mg/dL (8.7-10.3); Carbon Dioxide 29.6 mmol/L (21.6-31.8); Non-African American GFR(CKD) 22.8 (60.0-200.0); Phosphorus 3.8 mg/dL (2.4-5.1); Uric Acid 6.6 mg/dL (3.7-8.7)
[2020-08-31 11:11] LABS: Ferritin 554.4 ng/mL (22.0-322.0)
== END | disposition home or self-care (01) ==
LOC: LABWHC1 07:00
PROVIDERS: ATTEND Nurse Practitioner Adult Health
DX: M10.9 Gout, unspecified (principal); N18.4 Chronic kidney disease, stage 4 (severe); E55.9 Vitamin D deficiency, unspecified; N25.81 Secondary hyperparathyroidism of renal origin; D64.9 Anemia, unspecified; N39.0 Urinary tract infection, site not specified; R80.9 Proteinuria, unspecified
CPT/HCPCS: 36415; 80048; 81003; 82040; 82306; 82570; 82728; 83540; 83550; 83735; 83970; 84100; 84156; 84550; 85025

== ENCOUNTER → 2020-09-17 | Outpatient (CLI) | payer MEDICARE ==
[2020-09-17 11:21] LABS: African American GFR (CKD) 34.2 (60.0-200.0); Albumin 3.8 g/dL (3.80-4.90); Anion Gap 9.4 mmol/L (4.00-12.00); BUN/Creat Ratio 17.62 Ratio (12.00-20.00); Calcium 8.5 mg/dL (8.7-10.3); Carbon Dioxide 28.6 mmol/L (21.6-31.8); Chol/HDL Ratio 4.2; Globulin 1.9 g/dL (1.6-3.3); LDL Cholesterol,Calculated 89.8 mg/dL (0.0-131.0); Non-African American GFR(CKD) 29.5 (60.0-200.0); Potassium 4.2 mmol/L (3.5-5.5); Total Bilirubin 0.9 mg/dL (0.2-1.2); Total Protein 5.7 g/dL (6.2-8.2); VLDL Calculation 22.2 mg/dL (5.00-40.00)
[2020-09-18 03:13] LABS: Urine Creatinine 40.7 mg/dL
== END | disposition home or self-care (01) ==
LOC: LABWHC1 07:00
PROVIDERS: ATTEND Internal Medicine Endocrinology, Diabetes & Metabolism
DX: E11.65 Type 2 diabetes mellitus with hyperglycemia (principal)
CPT/HCPCS: 36415; 80053; 80061; 82043; 82570; 83036; 84443

== ENCOUNTER → 2020-12-26 | Outpatient (CLI) | payer MEDICARE ==
[2020-12-26 12:18] LABS: African American GFR (CKD) 32.3 (60.0-200.0); Albumin 3.9 g/dL (3.80-4.90); Albumin/Globulin Ratio 1.95 (1.60-3.17); Anion Gap 8.9 mmol/L (4.00-12.00); BUN/Creat Ratio 20.91 Ratio (12.00-20.00); Calcium 8.6 mg/dL (8.7-10.3); Carbon Dioxide 30.1 mmol/L (21.6-31.8); Chol/HDL Ratio 4.9; LDL Cholesterol,Calculated 95.6 mg/dL (0.0-131.0); Non-African American GFR(CKD) 27.9 (60.0-200.0); Potassium 4.1 mmol/L (3.5-5.5); Total Bilirubin 0.8 mg/dL (0.2-1.2); Total Protein 5.9 g/dL (6.2-8.2); VLDL Calculation 25.4 mg/dL (5.00-40.00)
[2020-12-26 13:07] LABS: Urine Creatinine 16.6 mg/dL
[2020-12-26 14:08] LABS: Microalbumin Creatinine Ratio <30 mg/g Creat (0-30)
[2020-12-26 15:28] LABS: Hemoglobin A1C 7.5 % (4.0-6.0)
== END | disposition home or self-care (01) ==
LOC: LABWHC1 07:58
PROVIDERS: ATTEND Internal Medicine Endocrinology, Diabetes & Metabolism
DX: E11.65 Type 2 diabetes mellitus with hyperglycemia (principal)
CPT/HCPCS: 36415; 80053; 80061; 82043; 82570; 83036; 84443

== ENCOUNTER → 2021-01-20 | Outpatient (CLI) | payer MEDICARE ==
[2021-01-20 08:28] LABS: Appearance,Urine Clear (Clear); Bilirubin,Urine Negative (Negative); Blood,Urine Negative (Negative); Color,Urine Colorless; Glucose,Urine (UA) Negative (Negative); Ketones,Urine Negative (Negative); Leukocyte Esterase,Urine Negative (Negative); Nitrite,Urine Negative (Negative); PH, Urine 6.5 (5.0-8.0); Protein,Urine Negative (Negative); Specific Gravity,Urine 1.006 (1.001-1.035); Urobilinogen,Urine <2.0 mg/dL (<2.0)
[2021-01-20 09:29] LABS: Creatinine,Urine Random 18.3 mg/dL; Protein/Creatinine Ratio,Urine 0.765
[2021-01-20 12:27] LABS: Basophils % (A) 1.2 %; Eosinophils # (A) 0.35 X 10*3/uL (0.04-0.35); Eosinophils % (A) 4.2 %; HCT 47.6 % (39.6-50.0); HGB 14.9 g/dL (13.0-17.0); Lymphocytes # (A) 1.16 X 10*3/uL (0.90-5.00); Lymphocytes % (A) 13.9 %; MCH 30.9 pg (27.0-32.0); MCHC 31.3 g/dL (32.0-37.0); MCV 98.8 fL (80.0-97.0); Mean Platelet Volume 11.4 fL (9.5-12.2); Monocytes # (A) 0.69 X 10*3/uL (0.20-1.00); Monocytes % (A) 8.2 %; Neutrophils # (A) 6.02 X 10*3/uL (1.80-7.70); Neutrophils % (A) 71.9 %; Platelet Count 158 X 10*3/uL (140-440); RBC 4.82 X 10*6/uL (4.40-5.60); RDW 14.6 % (11.5-14.5); WBC 8.37 X 10*3/uL (4.50-10.00)
[2021-01-20 18:00] LABS: % Iron Saturation 28.57 (15.00-50.00); African American GFR (CKD) 32.3 (60.0-200.0); Anion Gap 13.8 mmol/L (4.00-12.00); BUN/Creat Ratio 21.82 Ratio (12.00-20.00); Calcium 9.1 mg/dL (8.7-10.3); Carbon Dioxide 26.2 mmol/L (21.6-31.8); Magnesium 2.1 mg/dL (1.5-2.4); Non-African American GFR(CKD) 27.9 (60.0-200.0); Potassium 4.3 mmol/L (3.5-5.5); Uric Acid 5.7 mg/dL (3.7-8.7)
[2021-01-20 18:08] LABS: Ferritin 260.5 ng/mL (22.0-322.0)
== END | disposition home or self-care (01) ==
LOC: LABWHC1 06:57
PROVIDERS: ATTEND Nurse Practitioner Adult Health
DX: N18.4 Chronic kidney disease, stage 4 (severe) (principal); E55.9 Vitamin D deficiency, unspecified; D64.9 Anemia, unspecified; N25.81 Secondary hyperparathyroidism of renal origin; R80.9 Proteinuria, unspecified; M10.9 Gout, unspecified; N39.0 Urinary tract infection, site not specified
CPT/HCPCS: 36415; 80048; 81003; 82040; 82306; 82570; 82728; 83540; 83550; 83735; 83970; 84100; 84156; 84550; 85025

== ENCOUNTER → 2021-07-19 | Outpatient (CLI) | payer MEDICARE ==
[2021-07-19 11:24] LABS: Urine Creatinine 42.4 mg/dL (39.0-259.0)
[2021-07-19 16:00] LABS: ALT 24 U/L (10-49); AST 24 U/L (14-35); African American GFR (CKD) 30.6 (60.0-200.0); Albumin 3.9 g/dL (3.8-4.9); Albumin/Globulin Ratio 2.38 (1.60-3.17); Alkaline Phosphatase 111 U/L (41-126); BUN/Creat Ratio 15.24 Ratio (12.00-20.00); Blood Urea Nitrogen 34.9 mg/dL (9.0-27.0); Calcium 8.3 mg/dL (8.7-10.3); Carbon Dioxide 24.7 mmol/L (20.0-27.5); Chloride 102 mmol/L (96-109); Chol/HDL Ratio 3.88 Ratio; Globulin 1.6 g/dL (1.6-3.3); Glucose 190 mg/dL (70-110); LDL Cholesterol,Calculated 82.4 mg/dL (0.0-131.0); Non-African American GFR(CKD) 26.4 (60.0-200.0); Potassium 4.2 mmol/L (3.5-5.5); Sodium 143 mmol/L (135-145); Total Protein 5.6 g/dL (6.2-8.2)
== END | disposition home or self-care (01) ==
LOC: LABWHC1 07:13
PROVIDERS: ATTEND Internal Medicine Endocrinology, Diabetes & Metabolism
DX: E11.65 Type 2 diabetes mellitus with hyperglycemia (principal)
CPT/HCPCS: 36415; 80053; 80061; 82043; 82570; 83036; 84443

== ENCOUNTER → 2021-07-26 | Outpatient (CLI) | payer MEDICARE ==
[2021-07-26 09:09] LABS: Creatinine,Urine Random 106.2 mg/dL; Protein/Creatinine Ratio,Urine 0.198
[2021-07-26 10:54] LABS: Basophils # (A) 0.08 X 10*3/uL (0.00-0.10); Eosinophils # (A) 0.24 X 10*3/uL (0.04-0.35); Eosinophils % (A) 3.1 %; HCT 45.4 % (39.6-50.0); HGB 13.8 g/dL (13.0-17.0); Immature Grans, Automated 0.6 %; Lymphocytes # (A) 0.88 X 10*3/uL (0.90-5.00); Lymphocytes % (A) 11.3 %; MCH 30.2 pg (27.0-32.0); MCHC 30.4 g/dL (32.0-37.0); MCV 99.3 fL (80.0-97.0); Mean Platelet Volume 11.5 fL (9.5-12.2); NRBC Per 100 WBC 0 /100 WBCS (0.0-0.0); Neutrophils # (A) 5.87 X 10*3/uL (1.80-7.70); Platelet Count 164 X 10*3/uL (140-440); RBC 4.57 X 10*6/uL (4.40-5.60); RDW 15.1 % (11.5-14.5); WBC 7.82 X 10*3/uL (4.50-10.00)
[2021-07-26 15:41] LABS: Albumin 3.8 g/dL (3.8-4.9)
[2021-07-26 15:42] LABS: Appearance,Urine Clear (Clear); Bilirubin,Urine Negative (Negative); Blood,Urine Negative (Negative); Color,Urine Yellow (Yellow); Ketones,Urine Negative (Negative); Leukocyte Esterase,Urine Negative (Negative); Nitrite,Urine Negative (Negative); PH, Urine 6.5 (5.0-8.0); Protein,Urine Trace (Negative); Specific Gravity,Urine 1.014 (1.001-1.030)
[2021-07-26 16:26] LABS: Magnesium 2.4 mg/dL (1.5-2.4)
[2021-07-26 16:27] LABS: % Iron Saturation 19.25 (15.00-50.00); African American GFR (CKD) 31.2 (60.0-200.0); Anion Gap 17.1 mmol/L (10.00-18.00); BUN/Creat Ratio 14.13 Ratio (12.00-20.00); Blood Urea Nitrogen 31.8 mg/dL (9.0-27.0); Carbon Dioxide 23.5 mmol/L (20.0-27.5); Non-African American GFR(CKD) 26.9 (60.0-200.0); Phosphorus 3.6 mg/dL (2.4-5.1); Potassium 4.2 mmol/L (3.5-5.5); Uric Acid 5.2 mg/dL (3.7-8.7)
== END | disposition home or self-care (01) ==
LOC: LABWHC1 06:58
PROVIDERS: ATTEND Nurse Practitioner Adult Health
DX: E55.9 Vitamin D deficiency, unspecified (principal); N18.4 Chronic kidney disease, stage 4 (severe); D64.9 Anemia, unspecified; N25.81 Secondary hyperparathyroidism of renal origin; R80.9 Proteinuria, unspecified; M10.9 Gout, unspecified; N39.0 Urinary tract infection, site not specified
CPT/HCPCS: 36415; 80048; 81003; 82040; 82306; 82570; 82728; 83540; 83550; 83735; 83970; 84100; 84156; 84550; 85025

== ENCOUNTER → 2021-11-22 | Outpatient (CLI) | payer MEDICARE ==
[2021-11-22 10:45] LABS: HCT 45.6 % (39.6-50.0); HGB 13.8 g/dL (13.0-17.0); MCH 30.2 pg (27.0-32.0); MCHC 30.3 g/dL (32.0-37.0); MCV 99.8 fL (80.0-97.0); Mean Platelet Volume 11.7 fL (9.5-12.2); NRBC Per 100 WBC 0 /100 WBCS (0.0-0.0); Platelet Count 129 X 10*3/uL (140-440); RBC 4.57 X 10*6/uL (4.40-5.60); RDW 15.3 % (11.5-14.5); WBC 6.79 X 10*3/uL (4.50-10.00)
[2021-11-22 10:52] LABS: Appearance,Urine Clear (Clear); Bilirubin,Urine Negative (Negative); Blood,Urine Negative (Negative); Color,Urine Yellow (Yellow); Ketones,Urine Negative (Negative); Nitrite,Urine Negative (Negative); PH, Urine 6.5 (5.0-8.0); Specific Gravity,Urine 1.008 (1.001-1.030)
[2021-11-22 11:41] LABS: % Iron Saturation 17.67 (15.00-50.00); Albumin/Globulin Ratio 2.22 (1.60-3.17); BUN/Creat Ratio 13.61 Ratio (12.00-20.00); Blood Urea Nitrogen 38.1 mg/dL (9.0-27.0); Calcium 8.7 mg/dL (8.7-10.3); Globulin 1.8 g/dL (1.6-3.3); Magnesium 2.3 mg/dL (1.5-2.4); Non-African American GFR(CKD) 20.7 (60.0-200.0); Phosphorus 4.1 mg/dL (2.4-5.1); Total Bilirubin 0.8 mg/dL (0.30-1.20); Total Protein 5.8 g/dL (6.2-8.2); Uric Acid 5.7 mg/dL (3.7-8.7)
[2021-11-22 11:58] LABS: Microalbumin Creatinine Ratio <30 mg/g Creat (0-30)
== END | disposition home or self-care (01) ==
LOC: LABWHC1 06:58
PROVIDERS: ATTEND Internal Medicine
DX: N18.4 Chronic kidney disease, stage 4 (severe) (principal); D64.9 Anemia, unspecified; N39.0 Urinary tract infection, site not specified; R80.9 Proteinuria, unspecified; N25.81 Secondary hyperparathyroidism of renal origin; E55.9 Vitamin D deficiency, unspecified; M10.9 Gout, unspecified
CPT/HCPCS: 36415; 80053; 81003; 82043; 82306; 82570; 82728; 83540; 83550; 83735; 83970; 84100; 84550; 85027

== ENCOUNTER → 2022-02-21 | Outpatient (CLI) | payer MEDICARE ==
[2022-02-21 14:16] LABS: Appearance,Urine Clear (Clear); Bilirubin,Urine Negative (Negative); Blood,Urine Negative (Negative); Color,Urine Yellow (Yellow); Ketones,Urine Negative (Negative); Nitrite,Urine Negative (Negative); PH, Urine 6.5 (5.0-8.0)
[2022-02-21 15:11] LABS: HCT 45.8 % (39.6-50.0); HGB 14.3 g/dL (13.0-17.0); MCH 30.4 pg (27.0-32.0); MCHC 31.2 g/dL (32.0-37.0); MCV 97.4 fL (80.0-97.0); Mean Platelet Volume 11.2 fL (9.5-12.2); NRBC Per 100 WBC 0 /100 WBCS (0.0-0.0); Platelet Count 138 X 10*3/uL (140-440); RDW 14.4 % (11.5-14.5); WBC 7.21 X 10*3/uL (4.50-10.00)
[2022-02-21 15:29] LABS: % Iron Saturation 22.1 (15.00-50.00); African American GFR (CKD) 26.8 (60.0-200.0); Albumin 3.9 g/dL (3.8-4.9); Albumin/Globulin Ratio 1.85 (1.60-3.17); Anion Gap 11.1 mmol/L (10.00-18.00); BUN/Creat Ratio 11.18 Ratio (12.00-20.00); Blood Urea Nitrogen 28.5 mg/dL (9.0-27.0); Calcium 8.6 mg/dL (8.7-10.3); Carbon Dioxide 26.3 mmol/L (20.0-27.5); Globulin 2.1 g/dL (1.6-3.3); Magnesium 2.2 mg/dL (1.5-2.4); Non-African American GFR(CKD) 23.1 (60.0-200.0); Phosphorus 3.5 mg/dL (2.4-5.1); Total Bilirubin 0.8 mg/dL (0.30-1.20); Total Protein 6.1 g/dL (6.2-8.2); Uric Acid 7.2 mg/dL (3.7-8.7)
[2022-02-21 19:29] LABS: Urine Creatinine 61.1 mg/dL (39.0-259.0)
== END | disposition home or self-care (01) ==
LOC: LABWHC1 09:31
PROVIDERS: ATTEND Nurse Practitioner Adult Health
DX: E55.9 Vitamin D deficiency, unspecified (principal); D64.9 Anemia, unspecified; N25.81 Secondary hyperparathyroidism of renal origin; R80.9 Proteinuria, unspecified; N18.4 Chronic kidney disease, stage 4 (severe); N39.0 Urinary tract infection, site not specified; M10.9 Gout, unspecified
CPT/HCPCS: 36415; 80053; 81003; 82043; 82306; 82570; 82728; 83540; 83550; 83735; 83970; 84100; 84550; 85027

== ENCOUNTER → 2022-04-08 | Outpatient (CLI) | payer MEDICARE ==
[2022-04-08 10:25] LABS: ALT 11 U/L (10-49); AST 15 U/L (14-35); African American GFR (CKD) 32.1 (60.0-200.0); Albumin 3.7 g/dL (3.8-4.9); Albumin/Globulin Ratio 2.06 (1.60-3.17); Alkaline Phosphatase 102 U/L (41-126); BUN/Creat Ratio 8.77 Ratio (12.00-20.00); Blood Urea Nitrogen 19.3 mg/dL (9.0-27.0); Calcium 8.5 mg/dL (8.7-10.3); Carbon Dioxide 27.3 mmol/L (20.0-27.5); Chloride 106 mmol/L (96-109); Chol/HDL Ratio 4.42 Ratio; Globulin 1.8 g/dL (1.6-3.3); Glucose 130 mg/dL (70-110); Non-African American GFR(CKD) 27.7 (60.0-200.0); Potassium 4.1 mmol/L (3.5-5.5); Sodium 144 mmol/L (135-145); Total Protein 5.5 g/dL (6.2-8.2)
== END | disposition home or self-care (01) ==
LOC: LABWHC1 06:57
PROVIDERS: ATTEND Internal Medicine Endocrinology, Diabetes & Metabolism
DX: E11.65 Type 2 diabetes mellitus with hyperglycemia (principal)
CPT/HCPCS: 36415; 80053; 80061; 82043; 82570; 83036; 84443

== ENCOUNTER → 2022-05-24 | Outpatient (CLI) | payer MEDICARE ==
[2022-05-24 10:47] LABS: HCT 43.9 % (39.6-50.0); HGB 13.5 g/dL (13.0-17.0); MCH 30.1 pg (27.0-32.0); MCHC 30.8 g/dL (32.0-37.0); Mean Platelet Volume 11.1 fL (9.5-12.2); NRBC Per 100 WBC 0 /100 WBCS (0.0-0.0); Platelet Count 145 X 10*3/uL (140-440); RBC 4.48 X 10*6/uL (4.40-5.60); RDW 14.5 % (11.5-14.5)
[2022-05-24 11:39] LABS: % Iron Saturation 18.63 (15.00-50.00); African American GFR (CKD) 34.5 (60.0-200.0); Albumin 3.7 g/dL (3.8-4.9); Albumin/Globulin Ratio 1.72 (1.60-3.17); Anion Gap 13.5 mmol/L (10.00-18.00); BUN/Creat Ratio 13.64 Ratio (12.00-20.00); Blood Urea Nitrogen 28.1 mg/dL (9.0-27.0); Calcium 8.8 mg/dL (8.7-10.3); Carbon Dioxide 25.4 mmol/L (20.0-27.5); Globulin 2.2 g/dL (1.6-3.3); Magnesium 2.3 mg/dL (1.5-2.4); Non-African American GFR(CKD) 29.8 (60.0-200.0); Phosphorus 3.9 mg/dL (2.4-5.1); Potassium 4.1 mmol/L (3.5-5.5); Total Bilirubin 0.6 mg/dL (0.30-1.20); Total Protein 5.9 g/dL (6.2-8.2); Uric Acid 6.5 mg/dL (3.7-8.7)
[2022-05-24 13:58] LABS: Appearance,Urine Clear (Clear); Bilirubin,Urine Negative (Negative); Blood,Urine Negative (Negative); Color,Urine Yellow (Yellow); Ketones,Urine Negative (Negative); Nitrite,Urine Negative (Negative); Specific Gravity,Urine 1.015 (1.001-1.030)
== END | disposition home or self-care (01) ==
LOC: LABWHC1 06:56
PROVIDERS: ATTEND Nurse Practitioner Adult Health
DX: E21.3 Hyperparathyroidism, unspecified (principal); E55.9 Vitamin D deficiency, unspecified; M10.9 Gout, unspecified; N39.0 Urinary tract infection, site not specified; N18.4 Chronic kidney disease, stage 4 (severe); D63.1 Anemia in chronic kidney disease
CPT/HCPCS: 36415; 80053; 81003; 82043; 82306; 82570; 82728; 83540; 83550; 83735; 83970; 84100; 84550; 85027

== ENCOUNTER → 2022-08-24 | Outpatient (CLI) | payer MEDICARE ==
[2022-08-24 15:26] LABS: Basophils # (A) 0.09 X 10*3/uL (0.00-0.10); Basophils % (A) 1.3 %; Eosinophils # (A) 0.27 X 10*3/uL (0.04-0.35); Eosinophils % (A) 3.8 %; HCT 47.2 % (39.6-50.0); HGB 14.3 g/dL (13.0-17.0); Immature Grans, Automated 0.4 %; Lymphocytes # (A) 0.91 X 10*3/uL (0.90-5.00); Lymphocytes % (A) 12.7 %; MCHC 30.3 g/dL (32.0-37.0); MCV 99.2 fL (80.0-97.0); Mean Platelet Volume 10.7 fL (9.5-12.2); Monocytes # (A) 0.56 X 10*3/uL (0.20-1.00); Monocytes % (A) 7.8 %; NRBC Per 100 WBC 0 /100 WBCS (0.0-0.0); Neutrophils # (A) 5.32 X 10*3/uL (1.80-7.70); Platelet Count 162 X 10*3/uL (140-440); RBC 4.76 X 10*6/uL (4.40-5.60); RDW 13.7 % (11.5-14.5); WBC 7.18 X 10*3/uL (4.50-10.00)
[2022-08-24 15:48] LABS: Appearance,Urine Clear (Clear); Bilirubin,Urine Negative (Negative); Blood,Urine Negative (Negative); Color,Urine Yellow (Yellow); Ketones,Urine Negative (Negative); Nitrite,Urine Negative (Negative); Specific Gravity,Urine 1.021 (1.001-1.030)
[2022-08-24 16:39] LABS: % Iron Saturation 17.53 (15.00-50.00); African American GFR (CKD) 28.8 (60.0-200.0); Albumin 3.6 g/dL (3.8-4.9); Albumin/Globulin Ratio 2.06 (1.60-3.17); Anion Gap 10.5 mmol/L (10.00-18.00); BUN/Creat Ratio 9.96 Ratio (12.00-20.00); Blood Urea Nitrogen 23.8 mg/dL (9.0-27.0); Calcium 8.7 mg/dL (8.7-10.3); Carbon Dioxide 26.6 mmol/L (20.0-27.5); Globulin 1.8 g/dL (1.6-3.3); Magnesium 2.3 mg/dL (1.5-2.4); Non-African American GFR(CKD) 24.9 (60.0-200.0); Potassium 3.8 mmol/L (3.5-5.5); Total Bilirubin 0.5 mg/dL (0.30-1.20); Total Protein 5.4 g/dL (6.2-8.2)
== END | disposition home or self-care (01) ==
LOC: LABWHC1 06:39
PROVIDERS: ATTEND Nurse Practitioner Adult Health
DX: N25.81 Secondary hyperparathyroidism of renal origin (principal); N18.4 Chronic kidney disease, stage 4 (severe); D63.1 Anemia in chronic kidney disease; E55.9 Vitamin D deficiency, unspecified; M10.9 Gout, unspecified; N39.0 Urinary tract infection, site not specified; R80.9 Proteinuria, unspecified
CPT/HCPCS: 36415; 80053; 81001; 82043; 82306; 82570; 82728; 83540; 83550; 83735; 83970; 84100; 84550; 85025

== ENCOUNTER → 2022-08-31 | Outpatient (CLI) | payer MEDICARE ==
[2022-08-31 11:18] LABS: ALT 11 U/L (10-49); AST 15 U/L (14-35); African American GFR (CKD) 32.7 (60.0-200.0); Albumin 3.8 g/dL (3.8-4.9); Albumin/Globulin Ratio 2.22 (1.60-3.17); Alkaline Phosphatase 120 U/L (41-126); BUN/Creat Ratio 10.19 Ratio (12.00-20.00); Blood Urea Nitrogen 21.9 mg/dL (9.0-27.0); Calcium 8.7 mg/dL (8.7-10.3); Carbon Dioxide 29.3 mmol/L (20.0-27.5); Chloride 103 mmol/L (96-109); Chol/HDL Ratio 3.45 Ratio; Globulin 1.7 g/dL (1.6-3.3); Glucose 132 mg/dL (70-110); LDL Cholesterol,Calculated 78.1 mg/dL (0.0-131.0); Non-African American GFR(CKD) 28.3 (60.0-200.0); Sodium 142 mmol/L (135-145); Total Protein 5.5 g/dL (6.2-8.2)
[2022-08-31 21:11] LABS: Urine Creatinine 89.8 mg/dL (39.0-259.0)
== END | disposition home or self-care (01) ==
LOC: LABWHC1 06:43
PROVIDERS: ATTEND Internal Medicine Endocrinology, Diabetes & Metabolism
DX: E11.65 Type 2 diabetes mellitus with hyperglycemia (principal)
CPT/HCPCS: 36415; 80053; 80061; 82043; 82570; 83036; 84443

== ENCOUNTER → 2022-11-21 | Outpatient (CLI) | payer MEDICARE ==
[2022-11-21 11:34] LABS: ALT 13 U/L (10-49); AST 16 U/L (14-35); Albumin 4.2 d/dL (3.8-4.9); Alkaline Phosphatase 115 U/L (41-126); BUN/Creat Ratio 13.17 Ratio (12.00-20.00); Blood Urea Nitrogen 31.6 mg/dL (9.0-27.0); Calcium 9.2 mg/dL (8.7-10.3); Carbon Dioxide 27.4 mmol/L (21.6-31.8); Chloride 102 mmol/L (96-109); Globulin 2.1 d/dL (1.6-3.3); Glucose 143 mg/dL (70-110); Iron 65 UG/DL (65-175); Magnesium 2.3 mg/dL (1.5-2.4); Phosphorus 3.9 mg/dL (2.4-5.1); Sodium 142 mmol/L (135-145); Total Bilirubin 0.9 mg/dL (0.3-1.2); Total Iron Binding Capacity 314 UG/DL (228-460); Total Protein 6.3 d/dL (6.2-8.2); Uric Acid 7.3 mg/dL (3.7-8.7)
[2022-11-21 11:51] LABS: HCT 50.3 % (39.6-50.0); HGB 16.1 d/dL (12.0-15.0); MCH 31.4 pg (27.0-32.0); MCV 98.1 FL (80.0-97.0); Mean Platelet Volume 11.3 FL (9.5-12.2); NRBC Per 100 WBC 0 X 10*3/uL (0.00-0.01); Platelet Count 161 X 10*3/uL (140-440); RBC 5.13 X 10*6/uL (4.40-5.60); RDW 14.2 % (11.5-14.5); WBC 8.33 X 10*3/uL (4.50-10.00)
[2022-11-21 20:54] LABS: Appearance,Urine Clear (Clear); Bilirubin,Urine Negative (Negative); Blood,Urine Negative (Negative); Color,Urine Yellow (Yellow); Ketones,Urine Negative (Negative); Nitrite,Urine Negative (Negative); Specific Gravity,Urine 1.014 (1.001-1.030); Urobilinogen,Urine 0.2 E.U./DL
[2022-11-21 22:35] LABS: Urine Creatinine 64.5 mg/dL (39.0-259.0)
== END | disposition home or self-care (01) ==
LOC: LABWHC1 06:55
PROVIDERS: ATTEND Nurse Practitioner Adult Health
DX: N18.4 Chronic kidney disease, stage 4 (severe) (principal); E55.9 Vitamin D deficiency, unspecified; D63.1 Anemia in chronic kidney disease; N39.0 Urinary tract infection, site not specified; E21.3 Hyperparathyroidism, unspecified; M10.9 Gout, unspecified; R80.9 Proteinuria, unspecified
CPT/HCPCS: 36415; 80053; 81003; 82043; 82306; 82570; 82728; 83540; 83550; 83735; 83970; 84100; 84550; 85027

== ENCOUNTER → 2022-12-15 | Outpatient (CLI) | payer MEDICARE ==
[2022-12-15 13:58] LABS: Microalbumin Creatinine Ratio <12 mg/g Cr (0-30)
[2022-12-15 14:07] LABS: ALT 16 U/L (10-49); AST 15 U/L (14-35); Albumin 4.1 d/dL (3.8-4.9); Albumin/Globulin Ratio 2.56 Ratio (1.60-3.17); Alkaline Phosphatase 113 U/L (41-126); BUN/Creat Ratio 11.25 Ratio (12.00-20.00); Calcium 8.8 mg/dL (8.7-10.3); Carbon Dioxide 29.4 mmol/L (21.6-31.8); Chloride 104 mmol/L (96-109); Chol/HDL Ratio 3.47 Ratio; Globulin 1.6 d/dL (1.6-3.3); Glucose 128 mg/dL (70-110); LDL Cholesterol,Calculated 76.2 mg/dL (0.0-131.0); Potassium 4.1 mmol/L (3.5-5.5); Sodium 144 mmol/L (135-145); Total Bilirubin 0.9 mg/dL (0.3-1.2); Total Protein 5.7 d/dL (6.2-8.2)
== END | disposition home or self-care (01) ==
LOC: LABWHC1 06:44
PROVIDERS: ATTEND Internal Medicine Endocrinology, Diabetes & Metabolism
DX: E11.65 Type 2 diabetes mellitus with hyperglycemia (principal)
CPT/HCPCS: 36415; 80053; 80061; 82043; 82570; 83036

== ENCOUNTER → 2022-12-22 | Outpatient (CLI) | payer MEDICARE ==
--- NOTE | 2022-12-22 07:30 | US ---
EXAMINATION TYPE: US kidneys/renal and bladder DATE OF EXAM: 12/22/2022 COMPARISON: Renal ultrasound 10/14/2013 CLINICAL INDICATION: Male, 77 years old with history of N18.4 CHRONIC KIDNEY DISEASE, STAGE 4 (SEVERE ); CKD 4 EXAM MEASUREMENTS: Right Kidney: 10.4 x 5.0 x 5.4 cm Left Kidney: Atrophic not visualized. Right Kidney: cortical thinning. Left Kidney: atrophic not visualized. Bladder: Anechoic diverticula or outpouching visualized. Bilateral Jets seen: Yes minimally The left kidney is atrophic and not visualized. There is cortical thinning of the right kidney. No hy dronephrosis. No solid mass identified. No definitive nephrolithiasis. Urinary bladder demonstrates a n anechoic appearance with a diverticulum identified. Bilateral urinary jets identified. IMPRESSION: 1. No hydronephrosis. 2. Findings of chronic medical renal disease involving the right kidney. 3. Left kidney is atrophied and not visualized. 4. Urinary bladder diverticulum.
== END | disposition home or self-care (01) ==
LOC: RADUSWWP 06:50
PROVIDERS: ATTEND Internal Medicine
DX: N18.4 Chronic kidney disease, stage 4 (severe) (principal); N32.3 Diverticulum of bladder; N26.1 Atrophy of kidney (terminal)
CPT/HCPCS: 76770

== ENCOUNTER 2023-02-19 12:45 | Emergency (ER) | payer MEDICARE ==
[2023-02-19 12:59] VITALS: TEMP 97
--- NOTE | 2023-02-19 13:04 | ED ---
General Adult HPI - General Chief complaint: Fall Stated complaint: Fall,on Thinners, lac on both hands Time Seen by Provider: 02/19/23 12:52 Source: patient, family Mode of arrival: wheelchair Limitations: no limitations - History of Present Illness Initial comments: Dictation was produced using [employer] dictation software. please excuse any grammatical, word or spelling errors. Chief Complaint: 77-year-old male presents to the emergency department for bilateral hand pain, right foot pain and head injury History of Present Illness: 77-year-old male at approximately 2 PM yesterday he was pulling on his record of his drinking tremor. After the third he lost his balance causing him to fall forward. He tried to catch himself. He was falling on bilateral outstretched hands. Patient states he didn't hit his head. No loss of consciousness. He does take anticoagulation medications. Did not seek medical attention yesterday after the fall. Patient states that he is not worried about his head because he did not lose consciousness and does not have a headache. Patient is worried about his hands. He is diabetic and is worried that he might get an infection. He does have some mild pain to his right foot. He has no pain to his bilateral hands. He has no headache. Does have significant bruising. He states he was forced to come to the emergency department by his daughter at the bedside. The ROS documented in this emergency department record has been reviewed and confirmed by me. Those systems with pertinent positive or negative responses have been documented in the HPI. All other systems are other negative and/or noncontributory. - Related Data Home Medications Medication Instructions Recorded Confirmed Apixaban [Eliquis] 2.5 mg PO BID 10/29/13 09/19/22 Atorvastatin Calcium [Lipitor] 40 mg PO DAILY 10/29/13 09/19/22 Omeprazole [PriLOSEC] 20 mg PO DAILY 10/29/13 09/19/22 PARoxetine [Paxil] 20 mg PO DAILY 10/29/13 09/19/22 Potassium Chloride [Klor-Con 20] 20 meq PO MOTUWETHFR 09/21/15 09/19/22 Tamsulosin [Flomax] 0.4 mg PO DAILY 09/21/15 09/19/22 Ferrous Sulfate [Iron (65 MG 325 mg PO DAILY 05/02/19 09/19/22 Elemental)] Insulin Glargine,Hum.rec.anlog 14 units SQ HS 05/02/19 09/19/22 [Lantus Solostar Pen] Torsemide [Demadex] 20 mg PO DAILY 05/02/19 09/19/22 Cholecalciferol [Vitamin D3 (25 25 mcg PO BID 09/19/22 09/19/22 Mcg = 1000 Iu)] Cyanocobalamin (Vitamin B-12) 1,000 mcg PO DAILY 09/19/22 09/19/22 [Vitamin B-12] Dapagliflozin Propanediol [Farxiga] 5 mg PO DAILY 09/19/22 09/19/22 Insulin Aspart [NovoLOG Flexpen] 4 - 8 units SQ AC-TID 09/19/22 09/19/22 Mometasone Furoate [Nasonex 50 MCG] 2 spray EA NOSTRIL DAILY 09/19/22 09/19/22 Semaglutide [Rybelsus] 7 mg PO DAILY 09/19/22 09/19/22 carvediloL [Coreg] 12.5 mg PO BID 09/19/22 09/19/22 hydrALAZINE HCL [Apresoline] 25 mg PO DAILY 09/19/22 09/19/22 hydrALAZINE HCL [Apresoline] 50 mg PO HS 09/19/22 09/19/22 Previous Rx's Medication Instructions Recorded Cephalexin [Keflex] 500 mg PO Q6HR 5 Days #20 cap 02/19/23 Allergies Allergy/AdvReac Type Severity Reaction Status Date / Time meperidine HCl [From Demerol] Allergy Hallucinati Verified 09/19/22 21:24 ons morphine Allergy Hallucinati Verified 09/19/22 21:24 ons Review of Systems ROS Statement: Those systems with pertinent positive or pertinent negative responses have been documented in the HPI. ROS Other: All systems not noted in ROS Statement are negative. Past Medical History Past Medical History: Coronary Artery Disease (CAD), Diabetes Mellitus, GERD/Reflux, Hyperlipidemia, Hypertension, Osteoarthritis (OA), Prostate Disorder, Renal Disease, Sleep Apnea/CPAP/BIPAP Additional Past Medical History / Comment(s): enlarged prostate, decreased kidney function, History of Any Multi-Drug Resistant Organisms: None Reported Past Surgical History: Back Surgery, Coronary Bypass/CABG, Heart Catheterization, Hernia Repair, Joint Replacement, Orthopedic Surgery Additional Past Surgical History / Comment(s): shoulder & knee surg.,carpal tunnel surg., cervical fusion. multiple back surg. Past Anesthesia/Blood Transfusion Reactions: No Reported Reaction Past Psychological History: No Psychological Hx Reported Past Alcohol Use History: Occasional Past Drug Use History: None Reported - Past Family History Father Family Medical History: Cancer Mother Family Medical History: Cancer General Exam - General Exam Comments Initial Comments: PHYSICAL EXAM: General Impression: Alert and oriented x3, not in acute distress HEENT: Abrasion to the forehead, significant ecchymoses to the entire face, no palpable facial instability, extra-ocular movements intact, pupils equal and reactive to light bilaterally, mucous membranes moist. Cardiovascular: Heart regular rate and rhythm Chest: Able to complete full sentences, no retractions, no tachypnea Abdomen: abdomen soft, non-tender, non-distended, no organomegaly Musculoskeletal: Pulses present and equal in all extremities, no peripheral edema Bilateral hands: Significant bruising to the dorsum of the left hand with superficial lacerations to the MCP joints. Multiple amputated fingers Right foot: Ecchymoses to the anterior foot no mid foot pain. Pain along the distal first metatarsal Motor: no focal deficits noted Neurological: CN II-XII grossly intact, no focal motor or sensory deficits noted Skin: Intact with no visualized rashes Psych: Normal affect and mood Limitations: no limitations Course Vital Signs 02/19/23 02/19/23 02/19/23 12:49 13:03 13:31 Temperature 97 F L Pulse Rate 53 L 71 55 L Respiratory 20 18 18 Rate Blood Pressure 169/81 155/76 O2 Sat by Pulse 95 95 94 L Oximetry EKG Findings - EKG Comments: EKG Findings:: My EKG interpretation: Ventricular rate 62, A. fib, QRS 107, QTC 39. No MA prolongation, no QTC prolongation, no ST or T-wave changes noted. EKG compared to 2022 showing no changes. Overall, this EKG is unremarkable Medical Decision Making - Medical Decision Making Was pt. sent in by a medical professional or institution (, PA, GLUE JOINTER OPERATOR, urgent care, hospital, or longterm...) When possible be specific @ -No Did you speak to anyone other than the patient for history (EMS, parent, family, police, friend...)? What history was obtained from this source @ -No Did you review nursing and triage notes (agree or disagree)? Why? @ -I reviewed and agree with nursing and triage notes Were old charts reviewed (outside hosp., previous admission, EMS record, old EKG, old radiological studies, urgent care reports/EKG's, longterm records)? Report findings @ -No old charts were reviewed Differential Diagnosis (chest pain, altered mental status, abdominal pain women, abdominal pain men, vaginal bleeding, musculoskeletal, weakness, fever, dyspnea, syncope, headache, dizziness, GI bleed, back pain, seizure, CVA, palpatations, mental health)? @ -Intracranial bleed, facial fracture, hand fracture EKG interpreted by me (3pts min.). @ -None done X-rays interpreted by me (1pt min.). @ -Right elbow x-ray, bilateral hand x-ray unremarkable for acute processes. Foot x-ray shows possible lucency at the metatarsophalangeal joint. CT interpreted by me (1pt min.). @ -Scan of the head C-spine facial bones shows no acute emergent processes. There does appear to be some deformity to the nasal bone. No cervical or facial occult fractures U/S interpreted by me (1pt. min.). @ -None done What testing was considered but not performed or refused? (CT, X-rays, U/S, labs)? Why? @ -None What meds were considered but not given or refused? Why? @ -None Did you discuss the management of the patient with other professionals (professionals i.e. , PA, GLUE JOINTER OPERATOR, lab, RT, psych nurse, clinical social worker, twisting operator, teacher, nuclear medicine officer, case mgr)? Give summary @ -No Was smoking cessation discussed for >3mins.? @ -No Was critical care preformed (if so, how long)? @ -No Were there social determinants of health that impacted care today? How? (Homelessness, low income, unemployed, alcoholism, drug addiction, transportation, low edu. Level, literacy, decrease access to med. care, senior living, rehab)? @ -No Was there de-escalation of care discussed even if they declined (Discuss DNR or withdrawal of care, Hospice)? DNR status @ -No What co-morbidities impacted this encounter? (DM, HTN, Smoking, COPD, CAD, Cancer, CVA, ARF, Chemo, Hep., AIDS, mental health diagnosis, sleep apnea, morbid obesity)? @ -None Was patient admitted / discharged? Hospital course, mention meds given and route, prescriptions, significant lab abnormalities, going to OR and other pertinent info. @ -77-year-old male presents to the emergency department after fall. Fall occurred yesterday at 2 PM. He does take an thinners. Complains of bilateral hand pain, right foot pain. He does have bruising to the face however states that he is not here in emergency department for concerns of head injury. Patient chief complaint was that he is worried about the cuts on his hand and that they may become infected. Vital signs stable. Patient in no acute distress. Imaging studies negative except for nondisplaced first metatarsal fracture. Patient placed in a postop shoe for the right foot. He is told to follow-up with his orthopedic surgeon, Dr. Balderas. Told to be nonweightbearing to the foot until evaluated by orthopedic surgery. Tetanus updated. Risk and benefits were discussed regarding laceration repair given that its superficial and close to the 24 hour window patient preferred not to have lacerations repaired. Placed in a Vaseline gauze dressing told to wash his wounds with soap and water daily. Undiagnosed new problem with uncertain prognosis? @ -No Drug Therapy requiring intensive monitoring for toxicity (Heparin, Nitro, Insulin, Cardizem)? @ -No Were any procedures done? @ -No Diagnosis/symptom? Acute, or Chronic, or Acute on Chronic? Uncomplicated (without systemic symptoms) or Complicated (systemic symptoms)? @ -1. Close head injury, 2. Bilateral hand contusion, 3. Bilateral superficial hand lacerations, 4. Displaced first metatarsal fracture to the [facility] foot Side effects of treatment? @ -No Exacerbation, Progression, or Severe Exacerbation? @ -No Poses a threat to life or bodily function? How? (Chest pain, [place], [place], pneumonia, PE, COPD, DKA, ARF, appy, cholecystitis, CVA, Diverticulitis, Homicidal, Suicidal, threat to staff... and all critical care pts) @ -No Disposition Clinical Impression: Fall, Metatarsal fracture Disposition: HOME SELF-CARE Condition: Fair Instructions (If sedation given, give patient instructions): Fall Prevention for Older Adults (ED) Additional Instructions: no weight bearing right foot Prescriptions: Cephalexin [Keflex] 500 mg PO Q6HR 5 Days #20 cap Is patient prescribed a controlled substance at d/c from ED?: No Referrals: Lavelle Schwartz MD [Primary Care Provider] - 1-2 days Time of Disposition: 14:24
[2023-02-19 13:12] VITALS: RESP 18
--- NOTE | 2023-02-19 14:00 | CT ---
EXAMINATION TYPE: CT brain cspine wo con, CT facial bones wo con CT DLP: 1310.5 (accession [id number]), 300 (accession [id number]) mGycm, Automated exposure control for d ose reduction was used. DATE OF EXAM: 02/19/2023 1:51 PM COMPARISON: None. CLINICAL INDICATION:Male, 77 years old with history of fall; fall TECHNIQUE: Brain: Multiple axial CT images of the brain were obtained without IV contrast. Cspine: Axial CT images from the skull base to the inferior aspect of T2 we obtained without intraven ous contrast. Coronal and sagittal reformatted images were also reviewed. Facial: Axial imaging the facial structures with sagittal coronal reformats. FINDINGS Brain: Extra-axial spaces: No abnormal extra-axial fluid collections. Ventricular system: Within normal limits Cerebral parenchyma: No acute intraparenchymal hemorrhage or mass effect. The toledo-white junction is well differentiated. Cerebellum: Unremarkable. Mass effect: No evidence of midline shift. Intracranial vasculature: Atherosclerotic calcifications of the intracranial vessels. Soft tissues: Left forehead hematoma measuring up to 2.7 x 0.8 cm. Calvarium/osseous structures: No depressed skull fracture. There is deformity to the nasal bone with edema in the soft tissues overlying this. The temporomandibular joints are intact. Paranasal sinuses and mastoid air cells: Clear. Visualized orbits: Orbital contents are intact. No evidence for orbital fracture of the globes are in tact. Cervical spine: Fracture: None. Osseous structures: Postsurgical changes to the spine involving C3-C7. Hardware appears intact. There is ankylosis of C4-C5 vertebral bodies. Sternotomy wires are visualized. Multilevel degenerative dis c disease changes with endplate spurring and disc osteophyte complex's. Vertebral alignment: Within normal limits. Spinal canal/Neural Foramina: No evidence of significant spinal canal narrowing. No evidence for sign ificant neural foraminal stenosis. Neck soft tissues: Prevertebral soft tissues are within normal limits. Other: The airway is patent. The lung apices are clear. Atherosclerosis of the carotid bifurcations. Elongated styloid processes bilaterally. IMPRESSION: 1. No acute intracranial process. 2. Frontal scalp hematoma without evidence of fracture. 3. Nasal bone deformity correlate with tenderness for fracture. 4. No evidence of cervical spine fracture. 5. Post surgical changes with mild multilevel degenerative disc disease. Hardware appears intact.
--- NOTE | 2023-02-19 14:01 | XR ---
EXAMINATION TYPE: XR elbow complete RT DATE OF EXAM: 02/19/2023 1:57 PM CLINICAL INDICATION:Male, 77 years old with history of fall; COMPARISON: None TECHNIQUE: The right elbow was examined in AP, lateral, and oblique projections. FINDINGS: Severe degeneration with osteophyte formation of the elbow joints. No evidence of any acute osseous pathology, joint dislocation, or soft tissue swelling is noted. No evidence of joint effusi on is present. This course of the arterial vasculature. IMPRESSION: Degeneration changes of the elbow without evidence of fracture.
--- NOTE | 2023-02-19 14:03 | XR ---
EXAMINATION TYPE: XR hand complete bilateral DATE OF EXAM: 02/19/2023 1:57 PM CLINICAL INDICATION:Male, 77 years old with history of fall; COMPARISON: None TECHNIQUE: XR hand complete bilateral Frontal, lateral and oblique views were obtained. FINDINGS: Indication at the left second third digits proximal phalanges. There is severe degeneration changes throughout the joints of the fingers. There is no evidence of fracture within the visualized bilateral hands. Normal-appearing tuft fracture of the left fourth digit distal phalanx. IMPRESSION: 1. No acute osseous pathology bilaterally. 2. Severe multifocal osteophytosis changes. 3. 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
--- NOTE | 2023-02-19 14:04 | XR ---
EXAMINATION TYPE: XR foot complete RT DATE OF EXAM: 02/19/2023 1:57 PM CLINICAL INDICATION:Male, 77 years old with history of fall; H COMPARISON: None TECHNIQUE: XR foot complete RT examined in the AP, oblique, and lateral projections. FINDINGS: Multiple lucencies through the first digit proximal phalanx extending to the tarsometatarsal joint. N o evidence of soft tissue swelling. Joints are preserved. Multifocal osteoarthrosis changes of the ronak ints of the foot most pronounced in the mid foot. There is atherosclerosis of the arterial vasculatur e. IMPRESSION: Lucency through the first digit proximal phalanx extending to the metatarsophalangeal joint suspiciou s for acute fracture. Correlate with point tenderness. No additional fractures identified.
[2023-02-19] MEDS ORDERED: DIPH,PERTUS(ACELL)TETVAC-LF 0.5 ML VIAL IM ONE (14:24)
[2023-02-19 14:57] VITALS: BP 165/73; PULSE 66
== END 2023-02-19 14:53 | disposition home or self-care (01) ==
LOC: EC 12:45
DX: S92.311A Displaced fracture of first metatarsal bone, right foot, initial encounter for closed fracture (principal); S61.412A Laceration without foreign body of left hand, initial encounter; S61.411A Laceration without foreign body of right hand, initial encounter; S00.83XA Contusion of other part of head, initial encounter; I48.91 Unspecified atrial fibrillation; E11.9 Type 2 diabetes mellitus without complications; I10 Essential (primary) hypertension; I25.10 Atherosclerotic heart disease of native coronary artery without angina pectoris; E78.5 Hyperlipidemia, unspecified; K21.9 Gastro-esophageal reflux disease without esophagitis; N40.0 Benign prostatic hyperplasia without lower urinary tract symptoms; M19.90 Unspecified osteoarthritis, unspecified site; Z23 Encounter for immunization; Z79.01 Long term (current) use of anticoagulants; Z79.4 Long term (current) use of insulin; Z79.84 Long term (current) use of oral hypoglycemic drugs; Z79.899 Other long term (current) drug therapy; Z88.5 Allergy status to narcotic agent; Z95.1 Presence of aortocoronary bypass graft; W18.30XA Fall on same level, unspecified, initial encounter
CPT/HCPCS: 70450; 70486; 72125; 90471; 90715; 93005; 99284

== ENCOUNTER → 2023-02-20 | Outpatient (CLI) | payer MEDICARE ==
[2023-02-20 21:36] LABS: % Iron Saturation 18.69 (15.00-50.00); ALT 14 U/L (10-49); AST 19 U/L (14-35); Albumin 3.5 d/dL (3.8-4.9); Albumin/Globulin Ratio 1.67 Ratio (1.60-3.17); Alkaline Phosphatase 119 U/L (41-126); BUN/Creat Ratio 13.18 Ratio (12.00-20.00); Calcium 8.8 mg/dL (8.7-10.3); Carbon Dioxide 27.5 mmol/L (21.6-31.8); Chloride 101 mmol/L (96-109); Globulin 2.1 d/dL (1.6-3.3); Glucose 122 mg/dL (70-110); Iron 40 UG/DL (65-175); Magnesium 2.1 mg/dL (1.5-2.4); Potassium 3.7 mmol/L (3.5-5.5); Sodium 141 mmol/L (135-145); Total Iron Binding Capacity 214 UG/DL (228-460); Total Protein 5.6 d/dL (6.2-8.2)
[2023-02-20 21:41] LABS: HCT 44.3 % (39.6-50.0); HGB 13.9 d/dL (13.0-17.0); MCH 30.3 pg (27.0-32.0); MCHC 31.4 d/dL (32.0-37.0); MCV 96.5 FL (80.0-97.0); Mean Platelet Volume 11.2 FL (9.5-12.2); NRBC Per 100 WBC 0 X 10*3/uL (0.00-0.01); Platelet Count 148 X 10*3/uL (140-440); RBC 4.59 X 10*6/uL (4.40-5.60); RDW 14.5 % (11.5-14.5); WBC 7.83 X 10*3/uL (4.50-10.00)
[2023-02-20 21:45] LABS: Appearance,Urine Clear (Clear); Bilirubin,Urine Negative (Negative); Blood,Urine Negative (Negative); Color,Urine Yellow (Yellow); Ketones,Urine Negative (Negative); Nitrite,Urine Negative (Negative); PH, Urine 5.5; Specific Gravity,Urine 1.012 (1.001-1.030); Urobilinogen,Urine 0.2 E.U./DL
[2023-02-20 22:22] LABS: Microalbumin Creatinine Ratio <19 mg/g Cr (0-30); Urine Creatinine 62.4 mg/dL (39.0-259.0)
== END | disposition home or self-care (01) ==
LOC: LABWHC1 13:26
PROVIDERS: ATTEND Internal Medicine
DX: N18.4 Chronic kidney disease, stage 4 (severe) (principal); E55.9 Vitamin D deficiency, unspecified; N39.0 Urinary tract infection, site not specified; D63.1 Anemia in chronic kidney disease; N25.81 Secondary hyperparathyroidism of renal origin; M10.9 Gout, unspecified
CPT/HCPCS: 36415; 80053; 81003; 82043; 82306; 82570; 82728; 83540; 83550; 83735; 83970; 84100; 84550; 85027

== ENCOUNTER → 2023-03-24 | Outpatient (CLI) | payer MEDICARE ==
[2023-03-24 16:12] LABS: ALT 14 U/L (10-49); AST 17 U/L (14-35); Alkaline Phosphatase 125 U/L (41-126); BUN/Creat Ratio 12.14 Ratio (12.00-20.00); Blood Urea Nitrogen 25.5 mg/dL (9.0-27.0); Carbon Dioxide 28.7 mmol/L (21.6-31.8); Chloride 101 mmol/L (96-109); Chol/HDL Ratio 3.73 Ratio; Globulin 2.1 g/dL (1.6-3.3); Glucose 125 mg/dL (70-110); LDL Cholesterol,Calculated 95.8 mg/dL (0.0-131.0); Potassium 4.2 mmol/L (3.5-5.5); Sodium 142 mmol/L (135-145); Total Bilirubin 0.8 mg/dL (0.3-1.2); Total Protein 6.1 g/dL (6.2-8.2)
[2023-03-24 18:42] LABS: Urine Creatinine 97.9 mg/dL (39.0-259.0)
== END | disposition home or self-care (01) ==
LOC: LABWHC1 06:50
PROVIDERS: ATTEND Internal Medicine Endocrinology, Diabetes & Metabolism
DX: E11.65 Type 2 diabetes mellitus with hyperglycemia (principal)
CPT/HCPCS: 36415; 80053; 80061; 82043; 82570; 83036; 84443